=== PATIENT | female | born 1990 | race Caucasian/White ===

== ENCOUNTER → 2016-06-06 | Outpatient (CLI) | payer OTHER ==
--- NOTE | 2016-06-06 14:18 | US ---
EXAMINATION TYPE: US axilla extremity LT DATE OF EXAM: 06/06/2016 1:01 PM COMPARISON: NONE CLINICAL HISTORY: 25-year-old female R22.2 SWELLING MASS AND LUMP. Patient has a palpable lump within the left axilla that changes in size, color and degree of tenderness. Patient states scanned at [facility] and told lymph node, patient states can get very painful and reddened, wants surgically removed. TECHNIQUE: Multiple sonographic images at the site of patient's pain and palpable abnormality along t he left axilla. FINDINGS: Targeted scanning over the patient's area of concern, small brown skin discoloration over a pea-sized , mobile soft tissue mass characterized as an ovoid 7 mm hypoechoic structure showing no internal vas cularity and located just below the skin surface. IMPRESSION: Just below the skin surface at the site of patient's palpable and painful site in the left axilla is a 7 mm ovoid hypoechoic structure. The exact etiology is uncertain. This could be a sebaceous cyst or inclusion cyst. This does not show the typical morphology of a lymph node. If no intervention in the near future, consider reimaging if there is growth or increasing pain.
== END | disposition home or self-care (01) ==
LOC: RADUSWWP 12:25
PROVIDERS: ATTEND Family Medicine
DX: R22.2 Localized swelling, mass and lump, trunk (principal)

== ENCOUNTER → 2016-06-08 | Outpatient (CLI) | payer OTHER ==
--- NOTE | 2016-06-08 12:27 | MM ---
Reason for exam: clinical finding. History: Family history of breast cancer in maternal aunt at age 50. Indicated problem(s): lump or thickening in both breasts. Physical Findings: Nurse Summary: 1 x 1cm nodule in the right breast at 1 o'clock, 3 o'clock and 5 o'clock (nurse ts). MG Diagnostic Mammo w CAD NOE Bilateral CC and MLO view(s) were taken. The breast tissue is heterogeneously dense. This may lower the sensitivity of mammography. There is no discrete abnormality. These results were verbally communicated with the patient and result sheet given to the patient on 06/08/16. ASSESSMENT: Incomplete: need additional imaging evaluation, BI-RAD 0 RECOMMENDATION: Ultrasound of the right breast. (palpable abnormality)
--- NOTE | 2016-06-13 08:12 | USB ---
Reason for exam: additional evaluation requested from abnormal screening. History: Family history of breast cancer in maternal aunt at age 50. US Breast Limited RT Prior study comparison: November 25, 2015, ultrasound, performed at [facility]. Right breast ultrasound demonstrates a 1.8 x 1.1 x 0.7cm hyperechoic at 3 o'clock and a 1.3 x 1.0 x 0.6cm oval, hyperechoic lesion at 2 o'clock, probable lipoma. These results were verbally communicated with the patient and result sheet given to the patient on 06/08/16. ASSESSMENT: Probably benign, BI-RAD 3 RECOMMENDATION: Ultrasound of the right breast in 6 months.
== END | disposition home or self-care (01) ==
LOC: RADMAMWWP 10:08
PROVIDERS: ATTEND Family Medicine
DX: N63 Unspecified lump in breast (principal)
CPT/HCPCS: 76642; G0204

== ENCOUNTER 2016-07-05 11:40 | Day surgery (SDC) | payer OTHER ==
[2016-06-30 15:26] VITALS: BMI 32.5
[~2016-07-05 11:40] MED LIST: DEXAMETHASONE SOD PHOSPHATE 10 MG/ML 1 ML VIAL IV ONE; HYDROmorphone 1 MG/ML 1 ML SYRINGE IVP PRN; LACTATED RINGERS 1,000 ML IV SCH; LIDOCAINE 1% 20 ML VIAL (10MG/ML) FOR IV START INTRADERMA PRN; MIDAZOLAM 2 MG/2 ML VIAL IV PRN; ONDANSETRON 4 MG/2 ML VIAL IVP ONE; Pre Op ABX Message 1 EACH MISC MISCELLANE ONE; SCOPOLAMINE 1.5MG/72HR PATCH TRANSDERM ONE
[2016-07-05] MEDS ORDERED: LACTATED RINGERS 1,000 ML IV ONE ×2 (12:14→14:55)
[2016-07-05] MEDS ORDERED: HEPARIN SODIUM,PORCINE 5,000 UNIT/ML 1 ML VIAL SQ ONE (13:35)
[2016-07-05] MEDS ORDERED: LIDOCAINE (PF) 10 MG/ML 2 ML VIAL SQ ONE (13:56)
[2016-07-05] MEDS ORDERED: LIDOCAINE 1% INJ 10MG/ML (20 ML MDV) ONE (14:04)
[2016-07-05] MEDS ORDERED: PROPOFOL 10 MG/ML 20 ML VIAL IV ONE (14:04)
[2016-07-05] MEDS ORDERED: fentaNYL (PF) 50 MCG/ML 2 ML AMP ONE (14:04)
[2016-07-05] MEDS ORDERED: MIDAZOLAM 2 MG/2 ML VIAL ONE (14:04)
[2016-07-05] MEDS ORDERED: LIDOCAINE 1% INJ 10MG/ML (20 ML MDV) SQ ONE ×2 (14:25)
--- NOTE | 2016-07-05 15:00 | P.OP ---
Date of Procedure: 07/05/16 Preoperative Diagnosis: Breast nodule, left axillary cyst Postoperative Diagnosis: Same Procedure(s) Performed: Right breast biopsy, left axillary cyst removal Anesthesia: MAC Surgeon: Gem Dobson Estimated Blood Loss (ml): 10 IV fluids (ml): 600 Pathology: other (Right breast tissue, left axillary cyst) Condition: stable Disposition: PACU Indications for Procedure: Persistent nodularity in the right breast which is palpable FNA was benign. This bothers the patient she wishes it to be removed, left axillary cystic area Operative Findings: Right breast nodularity probable lipoma, left axillary cyst Description of Procedure: Patient was taken to the operating room and following sedation the right breast and left axilla were prepped and draped in a sterile fashion. The right breast was approached first. The circumflex coronary area incision was made after 1% lidocaine had been injected. The area of palpable abnormality was approached through this incision and it was excised. This appeared to be consistent with a lipoma. Following this after assured that hemostasis was attained the incision was closed using 4-0 Monocryl. Dermabond was applied. The left axilla was then approached the lungs were changed and the percent lidocaine was used to anesthetize the area of concern. Excision was performed this appeared to be superficial cystic structure. Skin was closed using a nylon suture after assured hemostasis was attained using electrocautery device. Patient tolerated procedure in stable condition. All instrument and sponge counts were correct at the end of the case.
--- NOTE | 2016-07-05 15:01 | P.DS ---
Providers Attending physician: Gem Dobson Primary care physician: Dallas Muhammad Plan - Discharge Summary Discharge Medication List ALPRAZolam [Xanax] 0.25 mg PO BID PRN 06/30/16 [History] Acetaminophen Tab [Tylenol Tab] 650 mg PO Q4H 06/30/16 [History] Cyclobenzaprine [Flexeril] 10 mg PO TID PRN 06/30/16 [History] HYDROcodone/APAP 5-325MG [[place] 5-325] 1 tab PO TID 06/30/16 [History] Ibuprofen [Motrin] 800 mg PO Q6HR PRN 06/30/16 [History] Follow up Appointment(s)/Referral(s): Gem Dobson MD [STAFF PHYSICIAN] - 1 Week Activity/Diet/Wound Care/Special Instructions: Do not drive today Rib block at all times Patient may shower after 48 hours Discharge Disposition: HOME SELF-CARE
[2016-07-05] MEDS ORDERED: MIDAZOLAM 2 MG/2 ML VIAL IVP ONE (15:16)
[2016-07-05 15:31] VITALS: TEMP 97.8
[2016-07-05 15:51] VITALS: RESP 18
[2016-07-05] MEDS ORDERED: HYDROcodone/APAP 5-325MG 1 EACH TAB PO ONE (15:58)
[2016-07-05 16:07] VITALS: BP 94/66; PULSE 71
== END 2016-07-05 16:35 | disposition home or self-care (01) ==
LOC: OR 11:40
PROVIDERS: ATTEND Surgery
DX: N64.1 Fat necrosis of breast (principal); L72.8 Other follicular cysts of the skin and subcutaneous tissue; N63 Unspecified lump in breast; Z88.2 Allergy status to sulfonamides; F17.200 Nicotine dependence, unspecified, uncomplicated; F41.9 Anxiety disorder, unspecified; Z79.899 Other long term (current) drug therapy
CPT/HCPCS: 19301; 11401; 88304; 88307; J2250; J1100; J2405; J2001; J3010; J2704

== ENCOUNTER 2016-08-12 23:24 | Emergency (ER) | payer OTHER ==
[2016-08-12 23:32] VITALS: RESP 18; TEMP 98.3
--- NOTE | 2016-08-13 02:02 | ED ---
Skin/Abscess/FB HPI - General Chief complaint: Skin/Abscess/Foreign Body Stated complaint: Rash/Leg Time Seen by Provider: 08/13/16 00:30 Source: patient, RN notes reviewed Mode of arrival: ambulatory Limitations: no limitations - History of Present Illness Initial comments: 25 yo female presents to the emergency Department chief complaint of abscess to the left inner thigh. Patient has had this for the past day or so. Patient denies any change in the area but does admit to a history of abscess. Patient has not any redness or swelling. Patient states she hasn't had any fever or chills. Patient states she does have pain to touch. Patient states she has a history of abscesses and thought that this looked familiar so she thought that she should be evaluated.Patient denies any recent fever, chills, shortness of breath, chest pain, back pain, abdominal pain, nausea vomiting, numbness or tingling, dysuria or hematuria, constipation or diarrhea, headaches or visual changes, or any other current symptoms. - Related Data Home Medications Medication Instructions Recorded Confirmed ALPRAZolam [Xanax] 0.25 mg PO BID PRN 06/30/16 06/30/16 Acetaminophen Tab [Tylenol Tab] 650 mg PO Q4H 06/30/16 06/30/16 Cyclobenzaprine [Flexeril] 10 mg PO TID PRN 06/30/16 06/30/16 HYDROcodone/APAP 5-325MG [[place] 1 tab PO TID 06/30/16 06/30/16 5-325] Ibuprofen [Motrin] 800 mg PO Q6HR PRN 06/30/16 06/30/16 Previous Rx's Medication Instructions Recorded Amoxic-Pot Clav 875-125Mg 1 tab PO Q12HR 7 Days 07/22/16 [Augmentin 875-125] Clindamycin [Cleocin] 450 mg PO Q8HR #90 capsule 08/13/16 Allergies Allergy/AdvReac Type Severity Reaction Status Date / Time Sulfa (Sulfonamide Allergy Rash/Hives Verified 08/12/16 23:32 Antibiotics) Review of Systems ROS Statement: Those systems with pertinent positive or pertinent negative responses have been documented in the HPI. ROS Other: All systems not noted in ROS Statement are negative. Past Medical History Past Medical History: Asthma, Osteoarthritis (OA) History of Any Multi-Drug Resistant Organisms: None Reported Past Surgical History: Cholecystectomy, Hernia Repair, Hysterectomy, Tonsillectomy, Tubal Ligation Additional Past Surgical History / Comment(s): BILATERAL TEAR DUCT,UTERINE ABLATION, right breast lumpectomy Past Anesthesia/Blood Transfusion Reactions: No Reported Reaction Past Psychological History: Anxiety Smoking Status: Current every day smoker Past Alcohol Use History: None Reported Additional Past Alcohol Use History / Comment(s): STARTED SMOKING AT AGE 14 SMOKES 1/2PPD Past Drug Use History: None Reported - Past Family History Mother Family Medical History: Cancer Additional Family Medical History / Comment(s): SKIN CANCER General Exam - General Exam Comments Initial Comments: General: The patient is awake and alert, in no distress, and does not appear acutely ill. Neck: The neck is supple, there is no tenderness. Cardiovascular: There is a regular rate and rhythm. No murmur, rub or gallop is appreciated. Respiratory: Lungs are clear to auscultation, respirations are non-labored, breath sounds are equal. No wheezes, stridor, rales, or rhonchi. Musculoskeletal: The patient With 2+ pulses. Left lower extremity. Full range of motion of the left hip and left knee. Patient does appear to have an abscess to the left internal side. There is no associated induration or swelling to the area. Neurological: CN II-XII intact, There are no obvious motor or sensory deficits. Coordination appears grossly intact. Speech is normal. Skin: Skin is warm and dry and no rashes or lesions are noted. Psychiatric: Normal mood and affect. Limitations: no limitations Course Vital Signs 08/12/16 23:29 Temperature 98.3 F Pulse Rate 83 Respiratory 18 Rate Blood Pressure 121/80 O2 Sat by Pulse 100 Oximetry Procedures - Procedures Initial comment: Procedure: Incision and drainage The skin overlying the abscess was prepped with Betadine, and anesthetized with 1% lidocaine without epinephrine. A #11 scalpel was then used to incise the abscess. Some purulent material was then extracted from the lesion. Gauze dressing placed on top, The patient tolerated the procedure well. Medical Decision Making - Medical Decision Making 25-year-old female presents to the emergency department with a chief complaint of left leg abscess. This pain patient underwent I&D. We did discuss care we did discuss follow-up with to discuss return parameters. We discussed all the patient's questions. He stated he understood and they are in agreement with plan. They will be discharged home. Disposition Clinical Impression: Abscess of left thigh Disposition: HOME SELF-CARE Condition: Stable Instructions: Abscess Incision and Drainage (ED) Additional Instructions: Please use medication as discussed. Please follow up with family doctor if symptoms have not improved over the next two days. Please return to the emergency room if your symptoms increase or worsen or for any other concerns. Prescriptions: Clindamycin [Cleocin] 450 mg PO Q8HR #90 capsule Referrals: Dallas Muhammad MD [Primary Care Provider] - 1-2 days Time of Disposition: 02:01
[2016-08-13 02:10] VITALS: BP 116/71; PULSE 82
== END 2016-08-13 02:10 | disposition home or self-care (01) ==
LOC: EC 23:24
DX: L02.416 Cutaneous abscess of left lower limb (principal); F17.200 Nicotine dependence, unspecified, uncomplicated; Z79.891 Long term (current) use of opiate analgesic; Z88.2 Allergy status to sulfonamides
CPT/HCPCS: 10060; 99282

== ENCOUNTER → 2016-10-14 | Outpatient (CLI) | payer OTHER ==
--- NOTE | 2016-10-19 09:37 | USB ---
Reason for exam: follow-up at short interval from prior study. History: Family history of breast cancer in maternal aunt at age 50. Physical Findings: Nurse Summary: had excisional 3 months ago right breast, tender (nurse kp). US Breast RT Right breast ultrasound includes all four quadrants, the retroareolar region and axilla. Finding demonstrates a 1.7cm area of surgical post changes at 3 o'clock. These results were verbally communicated with the patient and result sheet given to the patient on 10/14/16. ASSESSMENT: Benign, BI-RAD 2 RECOMMENDATION: Routine screening mammogram of both breasts at age 39. (per ACS guidelines) Manage patient on a clinical basis.
== END | disposition home or self-care (01) ==
LOC: RADUSWWP 15:38
PROVIDERS: ATTEND Family Medicine
DX: N63 Unspecified lump in breast (principal)

== ENCOUNTER 2016-11-02 15:39 | Emergency (ER) | payer OTHER ==
[2016-11-02 16:17] VITALS: BP 119/76; PULSE 106; RESP 18; TEMP 98.1
[2016-11-02] MEDS ORDERED: diphenhydrAMINE 50 MG CAP PO STA (16:30)
[2016-11-02] MEDS ORDERED: methylPREDNISolone SOD SUCCI 125 MG/2 ML VIAL IM ONE (16:30)
[2016-11-02] MEDS ORDERED: FAMOTIDINE 20 MG TAB PO STA (16:30)
--- NOTE | 2016-11-02 16:38 | ED ---
Skin/Abscess/FB HPI - General Chief complaint: Skin/Abscess/Foreign Body Stated complaint: Bee Sting Time Seen by Provider: 11/02/16 16:18 Source: patient, RN notes reviewed Mode of arrival: ambulatory Limitations: no limitations - History of Present Illness Initial comments: Patient is a 25-year-old female presents to the emergency room for evaluation of bee sting. Patient states she was stung by a bee on her right foot on Monday. Patient states she had some mild swelling and itching at the sting sight since. Patient states she noticed some swelling at the sting site. Patient denies fevers, chills, nausea vomiting or warmth at the area. Patient states she has been taking Benadryl with no relief of symptoms. - Related Data Home Medications Medication Instructions Recorded Confirmed ALPRAZolam [Xanax] 0.25 mg PO BID PRN 06/30/16 06/30/16 Acetaminophen Tab [Tylenol Tab] 650 mg PO Q4H 06/30/16 06/30/16 Cyclobenzaprine [Flexeril] 10 mg PO TID PRN 06/30/16 06/30/16 HYDROcodone/APAP 5-325MG [[place] 1 tab PO TID 06/30/16 06/30/16 5-325] Ibuprofen [Motrin] 800 mg PO Q6HR PRN 06/30/16 06/30/16 Previous Rx's Medication Instructions Recorded Amoxic-Pot Clav 875-125Mg 1 tab PO Q12HR 7 Days 07/22/16 [Augmentin 875-125] Clindamycin [Cleocin] 450 mg PO Q8HR #90 capsule 08/13/16 Pramox-Calamine 1-8% Lotion 1 applic TOPICAL TID 7 Days 11/02/16 [Caladryl] Allergies Allergy/AdvReac Type Severity Reaction Status Date / Time Sulfa (Sulfonamide Allergy Rash/Hives Verified 11/02/16 16:17 Antibiotics) Review of Systems ROS Statement: Those systems with pertinent positive or pertinent negative responses have been documented in the HPI. ROS Other: All systems not noted in ROS Statement are negative. Past Medical History Past Medical History: Asthma, Osteoarthritis (OA) History of Any Multi-Drug Resistant Organisms: None Reported Past Surgical History: Cholecystectomy, Hernia Repair, Hysterectomy, Tonsillectomy, Tubal Ligation Additional Past Surgical History / Comment(s): BILATERAL TEAR DUCT,UTERINE ABLATION, right breast lumpectomy Past Anesthesia/Blood Transfusion Reactions: No Reported Reaction Past Psychological History: Anxiety Smoking Status: Current every day smoker Past Alcohol Use History: None Reported Past Drug Use History: None Reported - Past Family History Mother Family Medical History: Cancer Additional Family Medical History / Comment(s): SKIN CANCER General Exam - General Exam Comments Initial Comments: Sitting on exam bed in no acute distress. Limitations: no limitations General appearance: alert, in no apparent distress Head exam: Present: atraumatic, normocephalic, normal inspection Eye exam: Present: normal appearance ENT exam: Present: normal exam Neck exam: Present: normal inspection Respiratory exam: Present: normal lung sounds bilaterally. Absent: respiratory distress Cardiovascular Exam: Present: regular rate, normal rhythm, normal heart sounds Right Ankle exam: Present: normal inspection, full ROM Foot/Toe exam: Present: tenderness (over the insect bite site), swelling ( slight edema on the mid-first metacarpal bone on the dorsal side from insect bite/sting). Absent: normal inspection Neurovascular tendon exam: Present: no vascular compromise. Absent: pulse deficit (2+ dorsal pedal and posterior tibial pulses), abnormal cap refill ( capillary refill less than 2 seconds) Back exam: Present: normal inspection Neurological exam: Present: alert, oriented X3, CN II-XII intact Psychiatric exam: Present: normal affect, normal mood Skin exam: Present: warm, dry. Absent: rash Course Vital Signs 11/02/16 16:14 Temperature 98.1 F Pulse Rate 106 H Respiratory 18 Rate Blood Pressure 119/76 O2 Sat by Pulse 97 Oximetry Medical Decision Making - Medical Decision Making Patient is a 25-year-old female presents to the emergency room for evaluation of right foot insect bite/sting. Patient does have some swelling around the site. No signs of cellulitis or infection noted no drainage noted patient has no fevers or chills. Patient denies any shortness of breath or chest pain. Patient given Solu-Medrol, Pepcid and another dose of Benadryl. Patient offered antibiotics. Patient states that she does not want antibiotics at this time and will follow-up with her primary care provider if symptoms worsen. Patient be sent home with Caladryl cream for comfort. Patient states she understands everything that was discussed with her. Return parameters discussed. Disposition Clinical Impression: Insect bite of right foot with local reaction Disposition: HOME SELF-CARE Condition: Good Instructions: Insect Bite or Sting (ED) Additional Instructions: Apply lotion as needed. Continue taking Benadryl every 4-6 hours. Please follow up with primary care provider in 1-2 days for reevaluation. If any new symptom arises or symptoms worsen, return to ER as soon as possible. Prescriptions: Pramox-Calamine 1-8% Lotion [Caladryl] 1 applic TOPICAL TID 7 Days Referrals: Dallas Muhammad MD [Primary Care Provider] - 1-2 days Time of Disposition: 16:33
== END 2016-11-02 16:52 | disposition home or self-care (01) ==
LOC: EC 15:39
DX: T63.441A Toxic effect of venom of bees, accidental (unintentional), initial encounter (principal); M19.90 Unspecified osteoarthritis, unspecified site; F17.200 Nicotine dependence, unspecified, uncomplicated; Z88.2 Allergy status to sulfonamides; Z79.891 Long term (current) use of opiate analgesic; Z79.899 Other long term (current) drug therapy
CPT/HCPCS: 99282; 96372; J2930

== ENCOUNTER 2017-01-20 19:49 | Emergency (ER) | payer OTHER ==
--- NOTE | 2017-01-20 20:16 | ED ---
Lower Extremity Injury HPI - General Stated Complaint: Fell down stairs/arm pain Time Seen by Provider: 01/20/17 20:06 Source: patient, RN notes reviewed Mode of arrival: ambulatory Limitations: no limitations - History of Present Illness Initial Comments: 26-year-old female presents emergency Department with chief complaint of fall. Patient has a left forearm injury. Patient states that she slipped on some stairs because she was wearing socks. Patient denies head injury no LOC. Patient states she feels sore but only complains primarily of left forearm pain she states her some bruising noted. - Related Data Home Medications Medication Instructions Recorded Confirmed ALPRAZolam [Xanax] 0.25 mg PO BID PRN 06/30/16 11/02/16 Acetaminophen Tab [Tylenol Tab] 650 mg PO Q4H 06/30/16 11/02/16 Cyclobenzaprine [Flexeril] 10 mg PO TID PRN 06/30/16 11/02/16 HYDROcodone/APAP 5-325MG [[place] 1 tab PO TID PRN 06/30/16 11/02/16 5-325] Ibuprofen [Motrin] 800 mg PO Q8H PRN 06/30/16 11/02/16 Loratadine 10 mg PO DAILY 11/02/16 11/02/16 Montelukast [Singulair] 10 mg PO HS 11/02/16 11/02/16 Previous Rx's Medication Instructions Recorded Pramox-Calamine 1-8% Lotion 1 applic TOPICAL TID 7 Days 11/02/16 [Caladryl] Allergies Allergy/AdvReac Type Severity Reaction Status Date / Time Sulfa (Sulfonamide Allergy Rash/Hives Verified 11/02/16 16:40 Antibiotics) Review of Systems ROS Statement: Those systems with pertinent positive or pertinent negative responses have been documented in the HPI. ROS Other: All systems not noted in ROS Statement are negative. Past Medical History Past Medical History: Asthma, Osteoarthritis (OA) History of Any Multi-Drug Resistant Organisms: None Reported Past Surgical History: Cholecystectomy, Hernia Repair, Hysterectomy, Tonsillectomy, Tubal Ligation Additional Past Surgical History / Comment(s): BILATERAL TEAR DUCT,UTERINE ABLATION, right breast lumpectomy Past Anesthesia/Blood Transfusion Reactions: No Reported Reaction Past Psychological History: Anxiety Smoking Status: Current every day smoker Past Alcohol Use History: None Reported Past Drug Use History: None Reported - Past Family History Mother Family Medical History: Cancer Additional Family Medical History / Comment(s): SKIN CANCER General Exam Limitations: no limitations General appearance: alert, in no apparent distress Head exam: Present: atraumatic, normocephalic, normal inspection Neck exam: Present: normal inspection, full ROM. Absent: tenderness, meningismus, lymphadenopathy Respiratory exam: Present: normal lung sounds bilaterally. Absent: respiratory distress, wheezes, rales, rhonchi, stridor Cardiovascular Exam: Present: regular rate, normal rhythm, normal heart sounds. Absent: systolic murmur, diastolic murmur, rubs, gallop, clicks Extremities exam: Present: other (Left forearm there is moderate swelling, ecchymosis noted, there is palpation of the mid forearm, no tenderness of the wrist full range of motion left elbow and wrist neurovascular intact) Back exam: Present: normal inspection, full ROM. Absent: tenderness Neurological exam: Present: alert, oriented X3, CN II-XII intact Skin exam: Present: warm, dry, intact, normal color. Absent: rash Course Vital Signs 01/20/17 20:10 Temperature 98.3 F Pulse Rate 80 Respiratory 18 Rate Blood Pressure 145/80 O2 Sat by Pulse 99 Oximetry Medical Decision Making - Medical Decision Making 26-year-old female presented to the emergency Department with chief complaint of fall. X-rays does not show any acute fractures. Patient has a left forearm hematoma/contusion. Patient be discharged return parameters were discussed. Disposition Clinical Impression: Fall, Contusion of left forearm Disposition: HOME SELF-CARE Condition: Stable Instructions: Contusion in Adults (ED) Additional Instructions: Please return to the Emergency Department if symptoms worsen or any other concerns. Referrals: Dallas Muhammad MD [Primary Care Provider] - 1-2 days Time of Disposition: 20:44
[2017-01-20 20:19] VITALS: BP 145/80; PULSE 80; RESP 18; TEMP 98.3
--- NOTE | 2017-01-20 20:40 | XR ---
EXAMINATION TYPE: XR forearm LT DATE OF EXAM: 01/20/2017 COMPARISON: NONE HISTORY: Pain TECHNIQUE: 2 views FINDINGS: I see no fracture nor dislocation. Radius and ulna appear intact. Soft tissues appear alondra l. IMPRESSION: Normal left forearm
== END 2017-01-20 20:50 | disposition home or self-care (01) ==
LOC: EC 19:49
DX: S50.12XA Contusion of left forearm, initial encounter (principal); J45.909 Unspecified asthma, uncomplicated; M19.90 Unspecified osteoarthritis, unspecified site; F17.200 Nicotine dependence, unspecified, uncomplicated; Z79.899 Other long term (current) drug therapy; W10.9XXA Fall (on) (from) unspecified stairs and steps, initial encounter
CPT/HCPCS: 99283

== ENCOUNTER 2017-06-06 17:10 | Emergency (ER) | payer OTHER ==
[2017-06-06 17:20] VITALS: RESP 16
[2017-06-06 17:40] LABS: Basophils # (A) 0.1 k/uL (0-0.2); Basophils % (A) 1 %; Eosinophils # (A) 0.4 k/uL (0-0.7); Eosinophils % (A) 3 %; HCT 43.1 % (34.0-46.0); Lymphocytes # (A) 3.6 k/uL (1.0-4.8); Lymphocytes % (A) 32 %; MCH 29.6 pg (25.0-35.0); MCHC 34.9 g/dL (31.0-37.0); MCV 84.9 fL (80.0-100.0); Mean Platelet Volume 7.3; Monocytes # (A) 0.5 k/uL (0-1.0); Monocytes % (A) 5 %; Neutrophils # (A) 6.5 k/uL (1.3-7.7); Neutrophils % (A) 58 %; Platelet Count 308 k/uL (150-450); RBC 5.08 m/uL (3.80-5.40); RDW 12.1 % (11.5-15.5); WBC 11.2 k/uL (3.8-10.6)
[2017-06-06 17:59] LABS: ALT 64 U/L (9-52); AST 36 U/L (14-36); Albumin 4.1 g/dL (3.5-5.0); Alkaline Phosphatase 104 U/L (38-126); Amylase 91 U/L (30-110); Anion Gap 11 mmol/L; Blood Urea Nitrogen 10 mg/dL (7-17); Calcium 9.4 mg/dL (8.4-10.2); Carbon Dioxide 23 mmol/L (22-30); Chloride 107 mmol/L (98-107); Glucose 98 mg/dL (74-99); Lipase 82 U/L (23-300); Potassium 4.1 mmol/L (3.5-5.1); Sodium 141 mmol/L (137-145); Total Bilirubin 0.3 mg/dL (0.2-1.3); Total Protein 6.6 g/dL (6.3-8.2)
[2017-06-06] MEDS ORDERED: SODIUM CHLORIDE 0.9% 1,000 ML IV ONE (18:06)
[2017-06-06] MEDS ORDERED: ONDANSETRON 4 MG/2 ML VIAL IVP STA (18:06)
[2017-06-06] MEDS ORDERED: KETOROLAC 30 MG/ML 1 ML VIAL IVP STA (18:06)
[2017-06-06] MEDS ORDERED: RX INFO: IV CONTRAST WAS GIVEN 1 EACH MISC MISCELLANE PRN (18:06)
--- NOTE | 2017-06-06 18:09 | ED ---
Abdominal Pain HPI - General Chief Complaint: Abdominal Pain Stated Complaint: Abd.pain Time Seen by Provider: 06/06/17 17:49 Source: patient, RN notes reviewed Mode of arrival: ambulatory Limitations: no limitations - History of Present Illness Initial Comments: This a 26-year-old female presents emergency Department chief complaint of abdominal discomfort. Patient states that she has been having abnormal bloating and cramping. Patient states that she once or primary care physician yesterday states that after she was at the office she developed nausea vomiting. states that she always has diarrhea after her cholecystectomy in 2014. Patient also had a hysterectomy. Patient states that she's had no fever no chills. Denies any sick contacts with similar symptoms. Patient states she's been scheduled for colonoscopy and EGD. Patient was given Bentyl and omeprazole yesterday. - Related Data Home Medications Medication Instructions Recorded Confirmed ALPRAZolam [Xanax] 0.25 mg PO BID PRN 06/30/16 06/06/17 Cyclobenzaprine [Flexeril] 10 mg PO TID PRN 06/30/16 06/06/17 Ibuprofen [Motrin] 800 mg PO Q8H PRN 06/30/16 06/06/17 Montelukast [Singulair] 10 mg PO HS 11/02/16 06/06/17 Albuterol Inhaler [Ventolin Hfa 1 - 2 puff INHALATION RT-Q6H PRN 06/06/17 Inhaler] Cetirizine HCl [Zyrtec] 10 mg PO DAILY PRN 06/06/17 06/06/17 Dicyclomine [Bentyl] 10 mg PO TID PRN 06/06/17 06/06/17 Fluticasone Nasal [place] [Flonase 1 - 2 spray EA NOSTRIL DAILY PRN 06/06/1706/06 Nasal [place]] Omeprazole 20 mg PO HS 06/06/17 06/06/17 diphenhydrAMINE HCL [Benadryl] 25 mg PO HS PRN 06/06/17 06/06/17 Previous Rx's Medication Instructions Recorded Ondansetron Odt [Zofran Odt] 4 mg PO Q8HR PRN #10 tab 06/06/17 Allergies Allergy/AdvReac Type Severity Reaction Status Date / Time Sulfa (Sulfonamide Allergy Rash/Hives Verified 06/06/17 18:27 Antibiotics) Review of Systems ROS Statement: Those systems with pertinent positive or pertinent negative responses have been documented in the HPI. ROS Other: All systems not noted in ROS Statement are negative. Past Medical History Past Medical History: Asthma, Osteoarthritis (OA) History of Any Multi-Drug Resistant Organisms: None Reported Past Surgical History: Cholecystectomy, Hernia Repair, Hysterectomy, Tonsillectomy, Tubal Ligation Additional Past Surgical History / Comment(s): BILATERAL TEAR DUCT,UTERINE ABLATION, right breast lumpectomy Past Anesthesia/Blood Transfusion Reactions: No Reported Reaction Past Psychological History: Anxiety Smoking Status: Current every day smoker Past Alcohol Use History: None Reported Past Drug Use History: None Reported - Past Family History Mother Family Medical History: Cancer Additional Family Medical History / Comment(s): SKIN CANCER General Exam Limitations: no limitations General appearance: alert, in no apparent distress Head exam: Present: atraumatic, normocephalic, normal inspection ENT exam: Present: normal exam, normal oropharynx, mucous membranes moist Neck exam: Present: normal inspection, full ROM. Absent: tenderness, meningismus, lymphadenopathy Respiratory exam: Present: normal lung sounds bilaterally. Absent: respiratory distress, wheezes, rales, rhonchi, stridor Cardiovascular Exam: Present: regular rate, normal rhythm, normal heart sounds. Absent: systolic murmur, diastolic murmur, rubs, gallop, clicks GI/Abdominal exam: Present: soft, tenderness (Mild suprapubic to right-sided abdominal tenderness), normal bowel sounds. Absent: distended, guarding, rebound, rigid Back exam: Absent: CVA tenderness (R), CVA tenderness (L) Skin exam: Present: warm, dry, intact, normal color. Absent: rash Course Vital Signs 06/06/17 17:17 Temperature 98.5 F Pulse Rate 96 Respiratory 16 Rate Blood Pressure 119/71 O2 Sat by Pulse 98 Oximetry Medical Decision Making - Medical Decision Making 26-year-old female presented for abdominal pain and bloating nausea vomiting. Patient's lab work showed mild elevation of white count though symptoms have been present for a long period of time. Patient had CT which shows evidence of enteritis. A be more consistent with recent nausea vomiting diarrhea Symptoms. Patient is scheduled to have a colonoscopy, EGD she will continue with that she'll try Bentyl as given by her primary care edition she'll be discharged with Zofran and return for any worsening symptoms. - Lab Data Result diagrams: 06/06/17 17:25 06/06/17 17:25 Lab Results 06/06/17 06/06/17 06/06/17 Range/Units 17:25 17:25 18:04 WBC 11.2 H (3.8-10.6) k/uL RBC 5.08 (3.80-5.40) m/uL Hgb 15.0 (11.4-16.0) gm/dL Hct 43.1 (34.0-46.0) % MCV 84.9 (80.0-100.0) fL MCH 29.6 (25.0-35.0) pg MCHC 34.9 (31.0-37.0) g/dL RDW 12.1 (11.5-15.5) % Plt Count 308 (150-450) k/uL Neutrophils % 58 % Lymphocytes % 32 % Monocytes % 5 % Eosinophils % 3 % Basophils % 1 % Neutrophils # 6.5 (1.3-7.7) k/uL Lymphocytes # 3.6 (1.0-4.8) k/uL Monocytes # 0.5 (0-1.0) k/uL Eosinophils # 0.4 (0-0.7) k/uL Basophils # 0.1 (0-0.2) k/uL Sodium 141 (137-145) mmol/L Potassium 4.1 (3.5-5.1) mmol/L Chloride 107 (98-107) mmol/L Carbon Dioxide 23 (22-30) mmol/L Anion Gap 11 mmol/L BUN 10 (7-17) mg/dL Creatinine 0.80 (0.52-1.04) mg/dL Est GFR (MDRD) Af Amer >60 (>60 ml/min/1.73 sqM) Est GFR (MDRD) Non-Af >60 (>60 ml/min/1.73 sqM) Glucose 98 (74-99) mg/dL Calcium 9.4 (8.4-10.2) mg/dL Total Bilirubin 0.3 (0.2-1.3) mg/dL AST 36 (14-36) U/L ALT 64 H (9-52) U/L Alkaline Phosphatase 104 (38-126) U/L Total Protein 6.6 (6.3-8.2) g/dL Albumin 4.1 (3.5-5.0) g/dL Amylase 91 (30-110) U/L Lipase 82 (23-300) U/L Urine Color Yellow Urine Appearance Cloudy H (Clear) Urine pH 6.5 (5.0-8.0) Ur Specific [place] 1.021 (1.001-1.035) Urine Protein Trace H (Negative) Urine Glucose (UA) Negative (Negative) Urine Ketones Trace H (Negative) Urine Blood Trace H (Negative) Urine Nitrite Negative (Negative) Urine Bilirubin Negative (Negative) Urine Urobilinogen 2.0 (<2.0) mg/dL Ur Leukocyte Esterase Trace H (Negative) Urine RBC 45 H (0-5) /hpf Urine WBC 3 (0-5) /hpf Ur Squamous Epith Cells 28 H (0-4) /hpf Urine Bacteria Occasional H (None) /hpf Urine Mucus Few H (None) /hpf Disposition Clinical Impression: Enteritis, Abdominal pain Disposition: HOME SELF-CARE Condition: Stable Instructions: Enteritis (ED) Additional Instructions: Please return to the Emergency Department if symptoms worsen or any other concerns. Prescriptions: Ondansetron Odt [Zofran Odt] 4 mg PO Q8HR PRN #10 tab PRN Reason: Nausea Referrals: Dallas Muhammad MD [Primary Care Provider] - 1-2 days Time of Disposition: 19:37
[2017-06-06 18:15] LABS: Appearance,Urine Cloudy (Clear); Bacteria,Urine Occasional /hpf; Bilirubin,Urine Negative (Negative); Blood,Urine Trace (Negative); Color,Urine Yellow; Glucose,Urine (UA) Negative (Negative); Ketones,Urine Trace (Negative); Leukocyte Esterase,Urine Trace (Negative); Mucus,Urine Few /hpf; Nitrite,Urine Negative (Negative); PH, Urine 6.5 (5.0-8.0); Protein,Urine Trace (Negative); RBC,Urine 45 /hpf (0-5); Specific Gravity,Urine 1.021 (1.001-1.035); Squamous Epithelial Cell,Urine 28 /hpf (0-4); WBC,Urine 3 /hpf (0-5)
--- NOTE | 2017-06-06 19:32 | CT ---
EXAMINATION TYPE: CT abdomen pelvis w con DATE OF EXAM: 06/06/2017 COMPARISON: NONE HISTORY: Right sided abdominal pain with vomiting. CT DLP: 1678 mGycm Automated exposure control for dose reduction was used. TECHNIQUE: Helical acquisition of images from the lung bases through the pelvis have been completed. CONTRAST: Performed without Oral Contrast and with IV Contrast, patient injected with 100 mL of Omnipaque 300. FINDINGS: LUNG BASES: No significant abnormality is appreciated. AORTA: No significant abnormality is appreciated. LIVER/GB: Patient is post cholecystectomy. Liver shows no mass. PANCREAS: No significant abnormality is seen. SPLEEN: No significant abnormality is seen. ADRENALS: No significant abnormality is seen. KIDNEYS: No significant abnormality is seen. REPRODUCTIVE ORGANS: Small left ovarian cyst is present measuring 2 cm, involuting follicle suspected within the right ovary, uterus is absent BOWEL: Small bowel shows multiple loops of wall thickening, luminal fluid. The appendix is normal.. FREE AIR: No Free Air visible. ASCITES: None visible. PELVIC ADENOPATHY: None visualized. RETROPERITONEAL ADENOPATHY: No Retroperitoneal Adenopathy visible. URINARY BLADDER: No significant abnormality is seen. OSSEOUS STRUCTURES: No significant abnormality is seen. IMPRESSION: CORRELATE FOR ENTERITIS. POSTOP CHANGES AND ADDITIONAL FINDINGS ABOVE.
[2017-06-06 20:05] VITALS: BP 118/70; PULSE 94; TEMP 98.3
== END 2017-06-06 20:05 | disposition home or self-care (01) ==
LOC: EC 17:10
DX: K52.9 Noninfective gastroenteritis and colitis, unspecified (principal); J45.909 Unspecified asthma, uncomplicated; F17.200 Nicotine dependence, unspecified, uncomplicated; Z90.49 Acquired absence of other specified parts of digestive tract; Z90.710 Acquired absence of both cervix and uterus; Z98.51 Tubal ligation status; Z79.899 Other long term (current) drug therapy; Z88.2 Allergy status to sulfonamides
CPT/HCPCS: 36415; 80053; 82150; 83690; 85025; 81001; 74177; 99284; 96374; 96375; 96361; J2405; J1885; Q9967

== ENCOUNTER 2017-06-23 08:26 | Day surgery (SDC) | payer OTHER ==
[2017-06-21 12:47] VITALS: BMI 40.2
[~2017-06-23 08:26] MED LIST changes: -DEXAMETHASONE SOD PHOSPHATE 10 MG/ML 1 ML VIAL IV ONE; -HYDROmorphone 1 MG/ML 1 ML SYRINGE IVP PRN; -LIDOCAINE 1% 20 ML VIAL (10MG/ML) FOR IV START INTRADERMA PRN; -MIDAZOLAM 2 MG/2 ML VIAL IV PRN; -ONDANSETRON 4 MG/2 ML VIAL IVP ONE; -Pre Op ABX Message 1 EACH MISC MISCELLANE ONE; -SCOPOLAMINE 1.5MG/72HR PATCH TRANSDERM ONE
[2017-06-23] MEDS ORDERED: LIDOCAINE 1% 20 ML VIAL (10MG/ML) FOR IV START INTRADERMA ONE (08:41)
[2017-06-23 08:48] VITALS: TEMP 98
[2017-06-23] MEDS ORDERED: fentaNYL (PF) 50 MCG/ML 2 ML AMP ONE (09:53)
[2017-06-23] MEDS ORDERED: MIDAZOLAM 2 MG/2 ML VIAL ONE (09:53)
[2017-06-23] MEDS ORDERED: PROPOFOL 10 MG/ML 20 ML VIAL IV ONE (09:53)
[2017-06-23] MEDS ORDERED: LIDOCAINE 1% INJ 10MG/ML (20 ML MDV) ONE (09:53)
--- NOTE | 2017-06-23 10:21 | P.PCN ---
Date of Procedure: 06/23/17 Procedure(s) Performed: Brief history: Patient is a pleasant 26-year-old white female, scheduled for an elective upper endoscopy as well as colonoscopy as a part of evaluation of GERD/lower abdominal pain and severe postprandial diarrhea for the last 6 months duration. She has followed centimeters from 5-10 a day which are loose to watery in consistency but denies any blood or mucus in the stool. Denies any recent weight loss. Procedure performed: Esophagogastroduodenoscopy with biopsy Colonoscopy with biopsy Preoperative diagnosis: GERD/chronic diarrhea Lower abdominal pain Anesthesia: MAC Procedure: After informed consent was obtained from the patient was brought into the endoscopy unit and IV sedation was administered by anesthesia under continuous monitoring. Initially upper endoscopy was done. The Olympus GF 160 video endoscope was inserted inserted into the mouth and esophagus intubated without any difficulty and was gradually advanced into the stomach and duodenum and carefully examined. The bulb and second part of the duodenum appeared normal. The scope was then withdrawn into the stomach adequately insufflated with air and upon careful examination the antrum had patchy areas of erythema and biopsies were done from this area. The body, cardia and fundus appeared normal. The scope was then withdrawn into the esophagus. The GE junction was located at 40 cm to the incisors. It appeared regular with no erythema erosions or ulcerations. Rest of the esophagus appeared normal. Patient tolerated the procedure well. At this time the patient continued to remain sedation. Initial digital rectal examination was normal. Olympus CF 160 video colonoscope was then inserted into the rectum and gradually advanced to the cecum without any difficulty. Careful examination was performed as the scope was gradually being withdrawn. The prep was excellent. Terminal ileum was intubated and 20 cm which raises appeared normal. Biopsies were done from this area. The cecum, ascending colon , transverse colon, descending colon, sigmoid colon and rectum appeared normal. Random biopsies were done from ascending and descending colon to rule out microscopic/collagenous colitis. Retroflexion was performed in the rectum and no lesions were noted. Patient tolerated the procedure well. Impression: 1. Upper endoscopy revealed mild antral gastritis, small hiatal hernia, LA grade B reflux esophagitis 2. Colonoscopy revealed normal colonoscopy as well his terminal ileum with no evidence of colitis or colorectal neoplasia Recommendations: Findings of this examination were discussed with the patient as well as her family. She was advised to follow with the biopsy results. In the meantime she can continue with Bentyl and daily basis.
[2017-06-23 10:33] VITALS: RESP 16
[2017-06-23 11:07] VITALS: BP 157/77; PULSE 84
[2017-06-23] MEDS ORDERED: ACETAMINOPHEN TAB 500 MG TAB PO ONE (11:10)
== END 2017-06-23 11:35 | disposition home or self-care (01) ==
LOC: ORWHC2ENDO 08:26
PROVIDERS: ATTEND Internal Medicine Gastroenterology
DX: K29.50 Unspecified chronic gastritis without bleeding (principal); K21.0 Gastro-esophageal reflux disease with esophagitis; K44.9 Diaphragmatic hernia without obstruction or gangrene; F39 Unspecified mood [affective] disorder; J44.9 Chronic obstructive pulmonary disease, unspecified; Z88.2 Allergy status to sulfonamides; Z79.899 Other long term (current) drug therapy; Z72.0 Tobacco use; Z79.1 Long term (current) use of non-steroidal anti-inflammatories (NSAID)
CPT/HCPCS: 81025; 88305; 45380; 43239; J2250; J2001; J3010; J2704

== ENCOUNTER → 2017-09-26 | Outpatient (CLI) | payer OTHER ==
--- NOTE | 2017-09-26 21:46 | CT ---
EXAMINATION TYPE: CT sinus wo con DATE OF EXAM: 09/26/2017 COMPARISON: NONE HISTORY: Chronic sinusitis, ROB. CT DLP: 581 mGycm. Automated Exposure Control for Dose Reduction was Utilized. TECHNIQUE: CT scan of the sinuses is performed without contrast, axial images are obtained, coronal r eformatted images are also reviewed. FINDINGS: There is large 2 cm mucous retention cyst in the right maxillary sinus. I see no bony destr uctive process. The orbital margins are intact. There is no evidence of retro-orbital mass. The globe s are symmetric. There is minimal mucosal thickening in the sphenoid and ethmoid sinuses. There is pa tency of the ostiomeatal complex bilaterally. Maxilla is intact. IMPRESSION: Mucous retention cyst in the right maxillary sinus. Mild ethmoid and sphenoid sinusitis.
== END ==
LOC: RADCTMAIN 19:22
PROVIDERS: ATTEND Otolaryngology
DX: J34.1 Cyst and mucocele of nose and nasal sinus (principal); J32.8 Other chronic sinusitis
CPT/HCPCS: 70486

== ENCOUNTER 2018-04-28 13:39 | Emergency (ER) | payer OTHER ==
[2018-04-28 13:58] VITALS: RESP 18
[2018-04-28] MEDS ORDERED: MORPHINE SULFATE 4 MG/ML SYRINGE IV STA (14:10)
[2018-04-28] MEDS ORDERED: SODIUM CHLORIDE 0.9% 1,000 ML IV STA ×2 (14:10)
[2018-04-28] MEDS ORDERED: ONDANSETRON 4 MG/2 ML VIAL IVP STA (14:10)
--- NOTE | 2018-04-28 14:12 | ED ---
General Adult HPI - General Chief complaint: Abdominal Pain Stated complaint: Abd pain Time Seen by Provider: 04/28/18 14:02 Source: patient, RN notes reviewed Mode of arrival: ambulatory Limitations: no limitations - History of Present Illness Initial comments: Patient 27-year-old female presenting to the emergency room today with a chief complaint of right-sided abdominal pain with symptoms of nausea vomiting, diarrhea. Patient does admit that symptoms started 2 days ago. Denies any signs of blood in the emesis or stool. Describes a sharp pain located in the right lower quadrant. Does admit some radiation to the back. Patient denies any other complaints currently. Patient denies any recent fever, chills, shortness of breath, chest pain, numbness or tingling, dysuria or hematuria, constipation, headaches or visual changes, or any other complaints. - Related Data Home Medications Medication Instructions Recorded Confirmed ALPRAZolam [Xanax] 0.25 mg PO BID PRN 06/30/16 06/23/17 Ibuprofen [Motrin] 800 mg PO Q8H PRN 06/30/16 06/23/17 Montelukast [Singulair] 10 mg PO HS 11/02/16 06/23/17 Dicyclomine [Bentyl] 10 mg PO TID PRN 06/06/17 06/23/17 Omeprazole 20 mg PO HS 06/06/17 06/23/17 Azithromycin [Zithromax] 250 mg PO DAILY 06/21/17 06/23/17 Previous Rx's Medication Instructions Recorded Dicyclomine [Bentyl] 20 mg PO QID #20 tablet 04/28/18 Ondansetron Odt [Zofran ODT] 4 mg PO Q8HR PRN #20 tab 04/28/18 Allergies Allergy/AdvReac Type Severity Reaction Status Date / Time Sulfa (Sulfonamide Allergy Rash/Hives Verified 06/21/17 12:42 Antibiotics) Review of Systems ROS Statement: Those systems with pertinent positive or pertinent negative responses have been documented in the HPI. ROS Other: All systems not noted in ROS Statement are negative. Past Medical History Past Medical History: Asthma, Fibromyalgia, Osteoarthritis (OA) Additional Past Medical History / Comment(s): CURRENTLY ON ANTIBIOTICS FOR SINUS INFECTION-DOCTOR AWARE History of Any Multi-Drug Resistant Organisms: None Reported Past Surgical History: Breast Surgery, Cholecystectomy, Hernia Repair, Hysterectomy, Tonsillectomy, Tubal Ligation, Uterine Ablation Additional Past Surgical History / Comment(s): BILATERAL TEAR DUCT,BMT, right breast lumpectomy Past Anesthesia/Blood Transfusion Reactions: No Reported Reaction Past Psychological History: Anxiety Smoking Status: Current every day smoker Past Alcohol Use History: Occasional Past Drug Use History: None Reported - Past Family History Mother Family Medical History: Cancer Additional Family Medical History / Comment(s): SKIN CANCER General Exam - General Exam Comments Initial Comments: General: The patient is awake and alert, in no distress, and does not appear acutely ill. Eye: There is normal conjunctiva bilaterally. No signs of icterus. Ears, nose, mouth and throat: There are moist mucous membranes and no oral lesions. Neck: The neck is supple, there is no tenderness or JVD. Cardiovascular: There is a regular rate and rhythm. No murmur, rub or gallop is appreciated. Respiratory: Lungs are clear to auscultation, respirations are non-labored, breath sounds are equal. No wheezes, stridor, rales, or rhonchi. Gastrointestinal: Abdomen soft on palpation. Patient does have tenderness right lower quadrant. No rebound, guarding or CVA tenderness. Musculoskeletal: Normal ROM, no tenderness. Neurological: A&O x 3. CN II-XII intact, There are no obvious motor or sensory deficits. Coordination appears grossly intact. Speech is normal. Skin: Skin is warm and dry and no rashes or lesions are noted. Psychiatric: Cooperative, appropriate mood & affect, normal judgment. Limitations: no limitations Course Vital Signs 04/28/18 13:54 Temperature 98.3 F Pulse Rate 113 H Respiratory 18 Rate Blood Pressure 126/95 O2 Sat by Pulse 97 Oximetry Medical Decision Making - Medical Decision Making Patient reexamined at this time shows no signs of distress is resting comfortably. Patient's labs reviewed and does show 15,000 white count. Patient did have a ultrasound obtained which did show good color Doppler flow to both left and right ovaries. Ultrasound was unable to visualize appendix. Patient still had persistent abdominal pain in the right lower quadrant. Was discussed about a CAT scan which CAT scan was obtained showing normal appendix and does show evidence for enteritis. At this time patient is currently comfortable will be treated for enteritis started on medications of Zofran, Bentyl for her symptoms of nausea, and diarrhea. She is advised following up with the next 2 days family physician return if symptoms increase or worsen. - Lab Data Result diagrams: 04/28/18 14:18 04/28/18 14:18 Lab Results 04/28/18 04/28/18 04/28/18 Range/Units 14:18 14:18 14:18 WBC 15.7 H (3.8-10.6) k/uL RBC 5.11 (3.80-5.40) m/uL Hgb 15.6 (11.4-16.0) gm/dL Hct 45.3 (34.0-46.0) % MCV 88.5 (80.0-100.0) fL MCH 30.6 (25.0-35.0) pg MCHC 34.5 (31.0-37.0) g/dL RDW 13.1 (11.5-15.5) % Plt Count 311 (150-450) k/uL Neutrophils % 71 % Lymphocytes % 20 % Monocytes % 4 % Eosinophils % 3 % Basophils % 0 % Neutrophils # 11.2 H (1.3-7.7) k/uL Lymphocytes # 3.2 (1.0-4.8) k/uL Monocytes # 0.7 (0-1.0) k/uL Eosinophils # 0.5 (0-0.7) k/uL Basophils # 0.1 (0-0.2) k/uL Sodium 138 (137-145) mmol/L Potassium 4.5 (3.5-5.1) mmol/L Chloride 103 (98-107) mmol/L Carbon Dioxide 27 (22-30) mmol/L Anion Gap 8 mmol/L BUN 14 (7-17) mg/dL Creatinine 0.69 (0.52-1.04) mg/dL Est GFR (CKD-EPI)AfAm >90 (>60 ml/min/1.73 sqM) Est GFR (CKD-EPI)NonAf >90 (>60 ml/min/1.73 sqM) Glucose 115 H (74-99) mg/dL Plasma Lactic Acid Erik (0.7-2.0) mmol/L Calcium 9.1 (8.4-10.2) mg/dL Total Bilirubin 0.7 (0.2-1.3) mg/dL AST 159 H (14-36) U/L ALT 259 H (9-52) U/L Alkaline Phosphatase 103 (38-126) U/L Total Protein 6.1 L (6.3-8.2) g/dL Albumin 4.0 (3.5-5.0) g/dL Lipase 113 (23-300) U/L Urine Color Urine Appearance (Clear) Urine pH (5.0-8.0) Ur Specific [place] (1.001-1.035) Urine Protein (Negative) Urine Glucose (UA) (Negative) Urine Ketones (Negative) Urine Blood (Negative) Urine Nitrite (Negative) Urine Bilirubin (Negative) Urine Urobilinogen (<2.0) mg/dL Ur Leukocyte Esterase (Negative) Urine RBC (0-5) /hpf Urine WBC (0-5) /hpf Ur Squamous Epith Cells (0-4) /hpf Urine Mucus (None) /hpf Urine HCG, Qual Not Detected (Not Detectd) 04/28/18 04/28/18 Range/Units 14:18 14:18 WBC (3.8-10.6) k/uL RBC (3.80-5.40) m/uL Hgb (11.4-16.0) gm/dL Hct (34.0-46.0) % MCV (80.0-100.0) fL MCH (25.0-35.0) pg MCHC (31.0-37.0) g/dL RDW (11.5-15.5) % Plt Count (150-450) k/uL Neutrophils % % Lymphocytes % % Monocytes % % Eosinophils % % Basophils % % Neutrophils # (1.3-7.7) k/uL Lymphocytes # (1.0-4.8) k/uL Monocytes # (0-1.0) k/uL Eosinophils # (0-0.7) k/uL Basophils # (0-0.2) k/uL Sodium (137-145) mmol/L Potassium (3.5-5.1) mmol/L Chloride (98-107) mmol/L Carbon Dioxide (22-30) mmol/L Anion Gap mmol/L BUN (7-17) mg/dL Creatinine (0.52-1.04) mg/dL Est GFR (CKD-EPI)AfAm (>60 ml/min/1.73 sqM) Est GFR (CKD-EPI)NonAf (>60 ml/min/1.73 sqM) Glucose (74-99) mg/dL Plasma Lactic Acid Erik 1.3 (0.7-2.0) mmol/L Calcium (8.4-10.2) mg/dL Total Bilirubin (0.2-1.3) mg/dL AST (14-36) U/L ALT (9-52) U/L Alkaline Phosphatase (38-126) U/L Total Protein (6.3-8.2) g/dL Albumin (3.5-5.0) g/dL Lipase (23-300) U/L Urine Color Yellow Urine Appearance Clear (Clear) Urine pH 7.0 (5.0-8.0) Ur Specific [place] 1.017 (1.001-1.035) Urine Protein Negative (Negative) Urine Glucose (UA) Negative (Negative) Urine Ketones Negative (Negative) Urine Blood Small H (Negative) Urine Nitrite Negative (Negative) Urine Bilirubin Negative (Negative) Urine Urobilinogen <2.0 (<2.0) mg/dL Ur Leukocyte Esterase Negative (Negative) Urine RBC 7 H (0-5) /hpf Urine WBC 1 (0-5) /hpf Ur Squamous Epith Cells 1 (0-4) /hpf Urine Mucus Rare H (None) /hpf Urine HCG, Qual (Not Detectd) Disposition Clinical Impression: Enteritis Disposition: HOME SELF-CARE Condition: Good Instructions: Enteritis (ED) Additional Instructions: Please use medication as discussed. Please follow-up with family doctor in the next 2 days of symptoms have not improved. Please return to emergency room if the symptoms increase or worsen or for any other concerns. Prescriptions: Dicyclomine [Bentyl] 20 mg PO QID #20 tablet Ondansetron Odt [Zofran ODT] 4 mg PO Q8HR PRN #20 tab PRN Reason: Nausea Is patient prescribed a controlled substance at d/c from ED?: No Referrals: Dallas Muhammad MD [Primary Care Provider] - 1-2 days Time of Disposition: 16:38
[2018-04-28 14:29] LABS: Basophils # (A) 0.1 k/uL (0-0.2); Basophils % (A) 0 %; Eosinophils # (A) 0.5 k/uL (0-0.7); Eosinophils % (A) 3 %; HCT 45.3 % (34.0-46.0); HGB 15.6 gm/dL (11.4-16.0); Lymphocytes # (A) 3.2 k/uL (1.0-4.8); Lymphocytes % (A) 20 %; MCH 30.6 pg (25.0-35.0); MCHC 34.5 g/dL (31.0-37.0); MCV 88.5 fL (80.0-100.0); Mean Platelet Volume 6.9; Monocytes # (A) 0.7 k/uL (0-1.0); Monocytes % (A) 4 %; Neutrophils # (A) 11.2 k/uL (1.3-7.7); Neutrophils % (A) 71 %; Platelet Count 311 k/uL (150-450); RBC 5.11 m/uL (3.80-5.40); RDW 13.1 % (11.5-15.5); WBC 15.7 k/uL (3.8-10.6)
[2018-04-28 14:31] LABS: Appearance,Urine Clear (Clear); Bilirubin,Urine Negative (Negative); Blood,Urine Small (Negative); Color,Urine Yellow; Glucose,Urine (UA) Negative (Negative); Ketones,Urine Negative (Negative); Leukocyte Esterase,Urine Negative (Negative); Mucus,Urine Rare /hpf; Nitrite,Urine Negative (Negative); Protein,Urine Negative (Negative); RBC,Urine 7 /hpf (0-5); Specific Gravity,Urine 1.017 (1.001-1.035); Squamous Epithelial Cell,Urine 1 /hpf (0-4); Urobilinogen,Urine <2.0 mg/dL (<2.0)
[2018-04-28 14:40] LABS: ALT 259 U/L (9-52); AST 159 U/L (14-36); Alkaline Phosphatase 103 U/L (38-126); Anion Gap 8 mmol/L; Blood Urea Nitrogen 14 mg/dL (7-17); Calcium 9.1 mg/dL (8.4-10.2); Carbon Dioxide 27 mmol/L (22-30); Chloride 103 mmol/L (98-107); Glucose 115 mg/dL (74-99); Lipase 113 U/L (23-300); Potassium 4.5 mmol/L (3.5-5.1); Sodium 138 mmol/L (137-145); Total Bilirubin 0.7 mg/dL (0.2-1.3); Total Protein 6.1 g/dL (6.3-8.2)
--- NOTE | 2018-04-28 15:44 | US ---
EXAMINATION TYPE: US abdomen APPY DATE OF EXAM: 04/28/2018 COMPARISON: NONE CLINICAL HISTORY: Pain. APPENDIX AP Diameter (normal < 6mm): not measured Measured outer wall to outer wall. Morbidly obese patient, appendix not visualized. IMPRESSION: Appendix not seen
--- NOTE | 2018-04-28 15:46 | US ---
EXAMINATION TYPE: US transvaginal DATE OF EXAM: 04/28/2018 COMPARISON: NONE CLINICAL HISTORY: pain. TECHNIQUE: Transvaginal (TV). : Date of LMP: 2014 patient had hysterectomy. EXAM MEASUREMENTS: Uterus: Surgically absent Endometrial Stripe: Surgically absent Right Ovary: 3.1 x 2.5 x 2.4cm Left Ovary: 2.5 x 1.7 x 1.7 cm 1. Uterus: Surgically absent 2. Endometrium: Surgically absent 3. Right Ovary: wnl 4. Left Ovary: This and associated hypoechoic focus measuring 14 mm, possible follicle. Spectral, color and waveform doppler imaging shows arterial and venous flow within the ovaries; the re is no evidence for ovarian torsion. 5. Bilateral Adnexa: wnl 6. Posterior cul-de-sac: wnl IMPRESSION: Status post hysterectomy
[2018-04-28] MEDS ORDERED: diphenhydrAMINE 50 MG/ML 1 ML VIAL IVP STA (15:50)
[2018-04-28] MEDS ORDERED: FAMOTIDINE 20 MG/2 ML VIAL IV STA (16:21)
--- NOTE | 2018-04-28 16:24 | CT ---
EXAMINATION TYPE: CT abdomen pelvis w con DATE OF EXAM: 04/28/2018 COMPARISON: CT abdomen pelvis 06/06/2017 HISTORY: Right sided abdominal pain with nausea, vomiting and diarrhea. CT DLP: 1294.7 mGycm Automated exposure control for dose reduction was used. TECHNIQUE: Helical acquisition of images from the lung bases through the pelvis have been completed. CONTRAST: Performed without Oral Contrast and with IV Contrast, patient injected with 100 mL of Isovue 300. FINDINGS: LUNG BASES: No significant abnormality is appreciated. AORTA: No significant abnormality is appreciated. LIVER/GB: No significant abnormality is appreciated within the liver, gallbladder is surgically absen t. PANCREAS: No significant abnormality is seen. SPLEEN: No significant abnormality is seen. ADRENALS: No significant abnormality is seen. KIDNEYS: No significant abnormality is seen. REPRODUCTIVE ORGANS: There is an oval area of increased attenuation with central low attenuation asso ciated with the right ovary compatible with involuting follicle. Left ovary shows associated follicle . Patient is post hysterectomy BOWEL: There are fluid-filled small bowel loops with wall thickening. No bowel obstruction. The appe ndix is normal. Scattered diverticular changes associated with the sigmoid colon, difficult to exclud e some colonic wall thickening. FREE AIR: No Free Air visible. ASCITES: None visible. PELVIC ADENOPATHY: None visualized. RETROPERITONEAL ADENOPATHY: No Retroperitoneal Adenopathy visible. URINARY BLADDER: No significant abnormality is seen. OSSEOUS STRUCTURES: No significant abnormality is seen. IMPRESSION: FINDINGS COMPATIBLE WITH PATIENT'S HISTORY, CORRELATE FOR ENTERITIS.
[2018-04-28 16:42] VITALS: BP 111/83; PULSE 83
[2018-04-28 16:55] VITALS: TEMP 97.8
[2018-04-28 17:38] LABS: Hepatitis A AB IgM Index 0.04; Hepatitis A Antibody IgM NEGATIVE
[2018-04-28 23:09] LABS: Hepatitis B Core IgM Non-Reactive (Non-Reactive)
== END 2018-04-28 16:56 | disposition home or self-care (01) ==
LOC: EC 13:39
DX: K52.9 Noninfective gastroenteritis and colitis, unspecified (principal); J45.909 Unspecified asthma, uncomplicated; M79.7 Fibromyalgia; J32.9 Chronic sinusitis, unspecified; F17.200 Nicotine dependence, unspecified, uncomplicated; Z88.2 Allergy status to sulfonamides; Z79.899 Other long term (current) drug therapy; Z90.49 Acquired absence of other specified parts of digestive tract
CPT/HCPCS: 36415; 80053; 80074; 83605; 83690; 85025; 81001; 81025; 93975; 76705; 76830; 74177; 99284; 96374; 96375 ×3; 96361 ×3; J2270; J1200; J2405; Q9967

== ENCOUNTER 2018-04-30 13:17 | Emergency (ER) | payer OTHER ==
[2018-04-30 13:24] VITALS: TEMP 98.1
[2018-04-30] MEDS ORDERED: SODIUM CHLORIDE 0.9% 1,000 ML IV STA (13:33)
[2018-04-30] MEDS ORDERED: MORPHINE SULFATE 4 MG/ML SYRINGE IVP STA ×2 (14:00→15:12)
[2018-04-30 14:06] LABS: Basophils # (A) 0.1 k/uL (0-0.2); Basophils % (A) 1 %; Eosinophils # (A) 0.4 k/uL (0-0.7); Eosinophils % (A) 3 %; HCT 46.2 % (34.0-46.0); HGB 14.7 gm/dL (11.4-16.0); Lymphocytes % (A) 21 %; MCH 28.5 pg (25.0-35.0); MCHC 31.9 g/dL (31.0-37.0); MCV 89.3 fL (80.0-100.0); Mean Platelet Volume 6.2; Monocytes # (A) 0.7 k/uL (0-1.0); Monocytes % (A) 5 %; Neutrophils % (A) 70 %; Platelet Count 304 k/uL (150-450); RBC 5.17 m/uL (3.80-5.40); RDW 13.2 % (11.5-15.5); WBC 14.2 k/uL (3.8-10.6)
[2018-04-30] MEDS ORDERED: ONDANSETRON 4 MG/2 ML VIAL IVP STA (14:07)
[2018-04-30] MEDS ORDERED: methylPREDNISolone SOD SUCCI 125 MG/2 ML VIAL IV STA (14:08)
[2018-04-30] MEDS ORDERED: FAMOTIDINE 20 MG/2 ML VIAL IV STA (14:08)
[2018-04-30] MEDS ORDERED: diphenhydrAMINE 50 MG/ML 1 ML VIAL IVP STA (14:08)
[2018-04-30 14:20] LABS: ALT 256 U/L (9-52); AST 54 U/L (14-36); Albumin 3.9 g/dL (3.5-5.0); Alkaline Phosphatase 124 U/L (38-126); Amylase 74 U/L (30-110); Anion Gap 7 mmol/L; Blood Urea Nitrogen 9 mg/dL (7-17); Calcium 9.6 mg/dL (8.4-10.2); Carbon Dioxide 28 mmol/L (22-30); Chloride 104 mmol/L (98-107); Glucose 96 mg/dL (74-99); Lipase 86 U/L (23-300); Potassium 4.1 mmol/L (3.5-5.1); Sodium 139 mmol/L (137-145); Total Bilirubin 0.8 mg/dL (0.2-1.3); Total Protein 6.6 g/dL (6.3-8.2)
[2018-04-30 15:42] LABS: Appearance,Urine Clear (Clear); Bilirubin,Urine Negative (Negative); Blood,Urine Negative (Negative); Color,Urine Light Yellow; Glucose,Urine (UA) Negative (Negative); Ketones,Urine Negative (Negative); Leukocyte Esterase,Urine Negative (Negative); Nitrite,Urine Negative (Negative); PH, Urine 6.5 (5.0-8.0); Protein,Urine Negative (Negative); Specific Gravity,Urine 1.005 (1.001-1.035); Urobilinogen,Urine <2.0 mg/dL (<2.0)
--- NOTE | 2018-04-30 16:05 | CT ---
EXAMINATION TYPE: CT abdomen pelvis w con DATE OF EXAM: 04/30/2018 COMPARISON: 04/28/2018 HISTORY: 27-year-old female worsening RLQ pain TECHNIQUE: Contiguous axial scanning of the abdomen and pelvis following administration of 100 ml Iso yoselin 300 IV contrast. Delayed images through the kidneys and coronal/sagittal reconstructions perform ed. CT DLP: 1398.5 mGycm Automated exposure control for dose reduction was used. FINDINGS: Heart normal size without pericardial effusion. Lung bases clear without pleural effusion. Liver upper limits of normal in size at 18.0 cm. No focal liver lesion. No biliary ductal dilatation. Portal venous system is patent. Cholecystectomy clips. Adrenal glands, kidneys, spleen, and pancreas appear within normal limits. No mesenteric or retroperitoneal lymphadenopathy seen. Normal appendix. Mild overall stool in the right hemicolon. No pericolonic inflammatory change. There is focal fat stranding along the right perimedian midabdominal wall just above the level of the umbilicus, refer to axial image 38 and sagittal image 71. This could represent a tiny abdominal wall defect with some minimal herniated inflamed omental fat. Bladder is nondistended. Uterus surgically absent. Both ovaries are visualized. No abnormal ovarian e nlargement seen. No abnormal fluid collection in the pelvis. No pelvic lymphadenopathy. Bones: Bulging disc at L5-S1. No osseous destructive process. IMPRESSION: 1. FOCAL FAT STRANDING ALONG THE RIGHT PARAMEDIAN MID ABDOMINAL WALL JUST ABOVE THE LEVEL OF THE UMBI LICUS (AXIAL IMAGE 38 AND SAGITTAL IMAGE 71). IF PAIN LOCALIZES TO THIS POINT, FINDINGS COULD REPRESE NT A TINY ABDOMINAL WALL DEFECT CONTAINING SOME HERNIATED AND INFLAMED OMENTAL FAT. 2. THE APPENDIX IS NORMAL. THERE IS OTHERWISE NO ACUTE INFLAMMATORY PROCESS IDENTIFIED IN THE ABDOMEN OR PELVIS TO EXPLAIN THE PATIENT'S SYMPTOMS.
--- NOTE | 2018-04-30 16:30 | ED ---
Abdominal Pain HPI - General Chief Complaint: Abdominal Pain Stated Complaint: R side pain Time Seen by Provider: 04/30/18 13:32 Source: patient Mode of arrival: ambulatory Limitations: no limitations - History of Present Illness Initial Comments: 27-year-old female presenting today for right-sided abdominal pain. Patient states that she was seen here on 04/28/2018 for evaluation of right lower quadrant pain. She states pelvic ultrasounds of performed revealing no acute process, she also states that she had an ultrasound of both the right lower quadrant as well as a CT of the abdomen revealing no signs concerning for acute appendicitis. Patient did have elevation of white blood cell, as well as her liver enzymes upon chart review. However no other concerning findings. She states that she continues to dry heave, but they diarrhea has almost subsided, she states she had a more formed BM this morning, pt called PCP this AM and she presented for evaluation given given persistence of symptoms. Patient denies a vaginal discharge or bleeding. Patient states she has had a history of hysterectomy. Patient states she has stopped vomiting, she states she occasionally has dry vomiting now. Patient denies any urgency, frequency, dysuria. Patient denies any chest pain, dyspnea, dyspnea on exertion. Patient denies any cough, fever, chills, jaundice, dizziness, melena . - Related Data Home Medications Medication Instructions Recorded Confirmed ALPRAZolam [Xanax] 0.25 mg PO BID PRN 06/30/16 04/30/18 Ibuprofen [Motrin] 800 mg PO Q8H PRN 06/30/16 04/30/18 Montelukast [Singulair] 10 mg PO HS 11/02/16 04/30/18 Omeprazole 20 mg PO HS 06/06/17 04/30/18 Cetirizine HCl [Zyrtec] 10 mg PO HS 04/30/18 04/30/18 Cyclobenzaprine [Flexeril] 10 mg PO HS 04/30/18 04/30/18 HYDROcodone/APAP 5-325MG [[place] 1 tab PO TID PRN 04/30/18 04/30/18 5-325] Pregabalin [Lyrica] 50 mg PO HS 04/30/18 04/30/18 Ranitidine HCl [Zantac] 150 mg PO BID 04/30/18 04/30/18 Previous Rx's Medication Instructions Recorded Dicyclomine [Bentyl] 20 mg PO QID #20 tablet 04/28/18 Ondansetron Odt [Zofran ODT] 4 mg PO Q8HR PRN #20 tab 04/28/18 Allergies Allergy/AdvReac Type Severity Reaction Status Date / Time Sulfa (Sulfonamide Allergy Rash/Hives Verified 04/30/18 13:39 Antibiotics) Review of Systems ROS Statement: Those systems with pertinent positive or pertinent negative responses have been documented in the HPI. ROS Other: All systems not noted in ROS Statement are negative. Past Medical History Past Medical History: Asthma, Fibromyalgia, Osteoarthritis (OA) Additional Past Medical History / Comment(s): CURRENTLY ON ANTIBIOTICS FOR SINUS INFECTION-DOCTOR AWARE History of Any Multi-Drug Resistant Organisms: None Reported Past Surgical History: Breast Surgery, Cholecystectomy, Hernia Repair, Hysterectomy, Tonsillectomy, Tubal Ligation, Uterine Ablation Additional Past Surgical History / Comment(s): BILATERAL TEAR DUCT,BMT, right breast lumpectomy Past Anesthesia/Blood Transfusion Reactions: No Reported Reaction Past Psychological History: Anxiety Smoking Status: Current every day smoker Past Alcohol Use History: Occasional Past Drug Use History: None Reported - Past Family History Mother Family Medical History: Cancer Additional Family Medical History / Comment(s): SKIN CANCER General Exam - General Exam Comments Initial Comments: General: The patient is awake and alert. pt does appear uncomfortable. Non toxic. Eye: Pupils are equal, round and reactive to light, extra-ocular movements are intact. No nystagmus. There is normal conjunctiva bilaterally. No signs of icterus. Ears, nose, mouth and throat: There are moist mucous membranes and no oral lesions. Neck: The neck is supple, there is no tenderness or JVD. Cardiovascular: There is a regular rate and rhythm. No murmur, rub or gallop is appreciated. Respiratory: Lungs are clear to auscultation, respirations are non-labored, breath sounds are equal. No wheezes, stridor, rales, or rhonchi. Gastrointestinal: No noted diaphoresis, jaundice, pallor, protecting postures or squirming. Symmetrical pigmentation of abdomen without signs of inflammation. No strike, no evidence of hernia. Umbilicus mildline, inverted without swelling. No dilated veins. Abdomen contour obese, no noted abdominal distention. No visible masses. No peristalsis, aortic pulsations, or ventral hernia. Bowel sounds audible in all 4 quadrants, unremarkable. No friction rubs or venous hums. Pt tender to right lower abdomen to deep palpation, no tenderness of the lower pelvic region. No rigidity or guarding. Liver edge, not palpable. Spleen edge , right and left kidney not palpable. Superior bladder margin non-tender. Special Testing: Negative Callum, cutaneous hyperesthesia. Iliopsoas. Negative Heel Jar test. No CVA tenderness. Digital rectal exam deferred. Negative frias turners or cullens sign Musculoskeletal: Normal ROM, no tenderness. Strength 5/5. Sensation intact. Pulses equal bilaterally 2+. Neurological: A&O x 3. CN II-XII intact, There are no obvious motor or sensory deficits. Coordination appears grossly intact. Speech is normal. Skin: Skin is warm and dry and no rashes or lesions are noted. No jaundice Psychiatric: Cooperative, appropriate mood & affect, normal judgment. Pelvic exam: Normal female hair pattern-shaved. [place] mucosa, moderately rugated/somewhat atrophic in appearance. Absent cervix. Small amount of discharge in vault. No odor. Limitations: no limitations Course Vital Signs 04/30/18 04/30/18 04/30/18 13:20 16:07 16:49 Temperature 98.1 F Pulse Rate 118 H 82 881 H Respiratory 18 16 8 L Rate Blood Pressure 116/84 108/64 143/90 O2 Sat by Pulse 96 97 97 Oximetry Medical Decision Making - Medical Decision Making Labs reviewed from previous visit. Trending downward. Significant improvement in AST. WBC remained elevated however slightly decreased, denies fever, chills, or night sweats. Pt does not appear toxic. Pt admits to vomiting, but states he has been decreasing and had more formed stool today. Passing gas. Pt states she can drink water. There was tenderness of the right LQ. Pt states persistent with no decrease from 2 days prior. I obtained repeat CT in case of developing acute process. No free fluid. Appendix normal. There was noted omentum in the mid abdominal wall, appears inflamed, pt pain appears lower on exam no obvious clinical correlation. pt states she had previous hernia repair as child. No hernia on exam observed or palpated. I discussed these findings and reviewed all laboratory as well as CT findings with my attending Dr. Almanza. He recommended outpatient surgical consultation with Dr. Arciniega. I discussed findings and plan with patient. She is agreeable with discharge and f/u. I discussed if symptoms worsen or unable to tolerate PO intake she must immediately return to the ER. Pt verbalized understanding. Pt states she will called surgeon immediately following visit today. Recorded discharge VS are 88HR and 18RR (error in recording. I did f/u with patient on 05/01/2018 at 11:45AM via phone call-pt states she has appointment at 2:00PM with Dr. Arciniega. She states she continues to have symptoms. I recommended return to the ER if patient believes symptoms are worsening. She states she will go to appointment but will return to ER for persistent vomiting or symptoms. - Lab Data Result diagrams: 04/30/18 13:42 04/30/18 13:42 Lab Results 04/30/18 04/30/18 04/30/18 Range/Units 13:42 13:42 15:00 WBC 14.2 H (3.8-10.6) k/uL RBC 5.17 (3.80-5.40) m/uL Hgb 14.7 (11.4-16.0) gm/dL Hct 46.2 H (34.0-46.0) % MCV 89.3 (80.0-100.0) fL MCH 28.5 (25.0-35.0) pg MCHC 31.9 (31.0-37.0) g/dL RDW 13.2 (11.5-15.5) % Plt Count 304 (150-450) k/uL Neutrophils % 70 % Lymphocytes % 21 % Monocytes % 5 % Eosinophils % 3 % Basophils % 1 % Neutrophils # 10.0 H (1.3-7.7) k/uL Lymphocytes # 3.0 (1.0-4.8) k/uL Monocytes # 0.7 (0-1.0) k/uL Eosinophils # 0.4 (0-0.7) k/uL Basophils # 0.1 (0-0.2) k/uL Sodium 139 (137-145) mmol/L Potassium 4.1 (3.5-5.1) mmol/L Chloride 104 (98-107) mmol/L Carbon Dioxide 28 (22-30) mmol/L Anion Gap 7 mmol/L BUN 9 (7-17) mg/dL Creatinine 0.92 (0.52-1.04) mg/dL Est GFR (CKD-EPI)AfAm >90 (>60 ml/min/1.73 sqM) Est GFR (CKD-EPI)NonAf 85 (>60 ml/min/1.73 sqM) Glucose 96 (74-99) mg/dL Calcium 9.6 (8.4-10.2) mg/dL Total Bilirubin 0.8 (0.2-1.3) mg/dL AST 54 H (14-36) U/L ALT 256 H (9-52) U/L Alkaline Phosphatase 124 (38-126) U/L Total Protein 6.6 (6.3-8.2) g/dL Albumin 3.9 (3.5-5.0) g/dL Amylase 74 (30-110) U/L Lipase 86 (23-300) U/L Urine Color Light Yellow Urine Appearance Clear (Clear) Urine pH 6.5 (5.0-8.0) Ur Specific [place] 1.005 (1.001-1.035) Urine Protein Negative (Negative) Urine Glucose (UA) Negative (Negative) Urine Ketones Negative (Negative) Urine Blood Negative (Negative) Urine Nitrite Negative (Negative) Urine Bilirubin Negative (Negative) Urine Urobilinogen <2.0 (<2.0) mg/dL Ur Leukocyte Esterase Negative (Negative) Trichomonas Ag (Rapid) (Negative) 04/30/18 Range/Units 16:00 WBC (3.8-10.6) k/uL RBC (3.80-5.40) m/uL Hgb (11.4-16.0) gm/dL Hct (34.0-46.0) % MCV (80.0-100.0) fL MCH (25.0-35.0) pg MCHC (31.0-37.0) g/dL RDW (11.5-15.5) % Plt Count (150-450) k/uL Neutrophils % % Lymphocytes % % Monocytes % % Eosinophils % % Basophils % % Neutrophils # (1.3-7.7) k/uL Lymphocytes # (1.0-4.8) k/uL Monocytes # (0-1.0) k/uL Eosinophils # (0-0.7) k/uL Basophils # (0-0.2) k/uL Sodium (137-145) mmol/L Potassium (3.5-5.1) mmol/L Chloride (98-107) mmol/L Carbon Dioxide (22-30) mmol/L Anion Gap mmol/L BUN (7-17) mg/dL Creatinine (0.52-1.04) mg/dL Est GFR (CKD-EPI)AfAm (>60 ml/min/1.73 sqM) Est GFR (CKD-EPI)NonAf (>60 ml/min/1.73 sqM) Glucose (74-99) mg/dL Calcium (8.4-10.2) mg/dL Total Bilirubin (0.2-1.3) mg/dL AST (14-36) U/L ALT (9-52) U/L Alkaline Phosphatase (38-126) U/L Total Protein (6.3-8.2) g/dL Albumin (3.5-5.0) g/dL Amylase (30-110) U/L Lipase (23-300) U/L Urine Color Urine Appearance (Clear) Urine pH (5.0-8.0) Ur Specific [place] (1.001-1.035) Urine Protein (Negative) Urine Glucose (UA) (Negative) Urine Ketones (Negative) Urine Blood (Negative) Urine Nitrite (Negative) Urine Bilirubin (Negative) Urine Urobilinogen (<2.0) mg/dL Ur Leukocyte Esterase (Negative) Trichomonas Ag (Rapid) Negative (Negative) Disposition Clinical Impression: Abdominal pain, Vomiting and diarrhea Disposition: HOME SELF-CARE Condition: Good Instructions: Abdominal Pain (ED) Additional Instructions: Please use medication as discussed. Please follow-up with family doctor in the next 2 days, please follow-up with Dr. Arciniega next 1-2 days. Please return to emergency room if the symptoms increase or worsen or for any other concerns. Is patient prescribed a controlled substance at d/c from ED?: No Referrals: Dallas Muhammad MD [Primary Care Provider] - 1-2 days Blue Arciniega MD [STAFF PHYSICIAN] - 1-2 days Time of Disposition: 16:30
[2018-04-30 16:50] VITALS: BP 143/90; PULSE 881; RESP 8
[2018-05-01 14:29] LABS: C. trachomatis,PCR Negative (Neg,Equiv); Chlamydia trachomatis Source Vagina; N. gonorrhoeae,PCR Negative (Neg,Equiv); Neisseria Source Vagina
== END 2018-04-30 16:45 | disposition home or self-care (01) ==
LOC: EC 13:17
DX: R10.9 Unspecified abdominal pain (principal); R11.10 Vomiting, unspecified; R19.7 Diarrhea, unspecified; J45.909 Unspecified asthma, uncomplicated; M79.7 Fibromyalgia; M19.90 Unspecified osteoarthritis, unspecified site; F41.9 Anxiety disorder, unspecified; F17.200 Nicotine dependence, unspecified, uncomplicated; Z90.49 Acquired absence of other specified parts of digestive tract; Z90.710 Acquired absence of both cervix and uterus; Z98.51 Tubal ligation status; Z98.890 Other specified postprocedural states; Z88.2 Allergy status to sulfonamides
CPT/HCPCS: 36415; 80053; 82150; 83690; 85025; 81003; 87808; 87491; 87591; 74177; 99284; 96374; 96375 ×4; 96376; 96361; J2270; J1200; J2930; J2405; Q9967

== ENCOUNTER 2018-05-01 14:42 | Inpatient (IN) | payer OTHER ==
[2018-05-01] MEDS ORDERED: ONDANSETRON 4 MG/2 ML VIAL IVP STA (14:56)
[2018-05-01] MEDS ORDERED: SODIUM CHLORIDE 0.9% 1,000 ML IV STA (14:56)
[2018-05-01] MEDS ORDERED: MORPHINE SULFATE 4 MG/ML SYRINGE IV STA (14:56)
--- NOTE | 2018-05-01 16:06 | US ---
EXAMINATION TYPE: US abdomen limited DATE OF EXAM: 05/01/2018 COMPARISON: NONE CLINICAL HISTORY: choledocholithiasis r/o (biliary/pancreas US). GB removed 2014 for being overactive , stabbing abd pain for 5 days EXAM MEASUREMENTS: Liver Length: 15.5 cm Gallbladder Wall: Surgically absent CBD: 0.3 cm Right Kidney: 8.7 x 3.9 x 4.4 cm Pancreas: wnl Liver: wnl Gallbladder: Surgically absent Evidence for sonographic Rogers's sign: no CBD: wnl Right Kidney: No hydronephrosis. IMPRESSION: Surgical absence of the gallbladder. No dilation of the common bile duct to suggest sabas docholithiasis. Otherwise unremarkable right upper quadrant ultrasound.
[2018-05-01 16:40] LABS: ALT 213 U/L (9-52); AST 46 U/L (14-36); Albumin 4.2 g/dL (3.5-5.0); Alkaline Phosphatase 134 U/L (38-126); Amylase 82 U/L (30-110); Anion Gap 8 mmol/L; Blood Urea Nitrogen 11 mg/dL (7-17); Calcium 9.8 mg/dL (8.4-10.2); Carbon Dioxide 28 mmol/L (22-30); Chloride 104 mmol/L (98-107); Glucose 90 mg/dL (74-99); Lipase 69 U/L (23-300); Potassium 3.9 mmol/L (3.5-5.1); Sodium 140 mmol/L (137-145); Total Bilirubin 0.5 mg/dL (0.2-1.3); Total Protein 6.9 g/dL (6.3-8.2)
[2018-05-01 16:51] LABS: Basophils # (A) 0.1 k/uL (0-0.2); Basophils % (A) 0 %; Eosinophils % (A) 0 %; HCT 44.2 % (34.0-46.0); Lymphocytes # (A) 3.1 k/uL (1.0-4.8); Lymphocytes % (A) 13 %; MCH 30.2 pg (25.0-35.0); MCHC 33.9 g/dL (31.0-37.0); MCV 89.3 fL (80.0-100.0); Mean Platelet Volume 6.9; Monocytes % (A) 4 %; Neutrophils # (A) 19.4 k/uL (1.3-7.7); Neutrophils % (A) 82 %; Platelet Count 281 k/uL (150-450); RBC 4.95 m/uL (3.80-5.40); WBC 23.7 k/uL (3.8-10.6)
[2018-05-01] MEDS ORDERED: NALOXONE 0.4 MG/ML 1 ML VIAL IV PRN (17:51)
[2018-05-01] MEDS ORDERED: IBUPROFEN 400 MG TAB PO PRN (17:51)
--- NOTE | 2018-05-01 17:55 | ED ---
Abdominal Pain HPI <Alf Kent - Last Filed: 05/01/18 18:10> - General Source: patient Mode of arrival: ambulatory Limitations: no limitations <Danuta Ngo - Last Filed: 05/01/18 23:30> - General Chief Complaint: Abdominal Pain Stated Complaint: abdominal pain/vomiting-revisit Time Seen by Provider: 05/01/18 14:56 - History of Present Illness Initial Comments: 27-year-old female with history of previous cholecystectomy presenting today for persistent abdominal pain. Patient has been seen previously on 04/28 and with right-sided abdominal pain nausea, vomiting and diarrhea (-) CT findings. Labs rending downward from 04/28-04/30. Pt given outpatient surgical follow-up for small herniation with possible omentum involvement. Pt was seen at 2:00PM. Pt sent from surgeon, Dr. Segura office for US to r/o choledocholithiasis. Patient denies wrapper quadrant pain, patient states the pain is right-sided mid to lower abdominal pain. Patient admits to vomiting, and dry heaving. Patient states she has no longer able tolerate by mouth intake despite taking Zofran. Patient states stool is more formed than previous history of diarrhea. Upon arrival patient's heart rate elevated remainder of vital signs within acceptable limits. (Danuta Ngo) - Related Data Home Medications Medication Instructions Recorded Confirmed ALPRAZolam [Xanax] 0.25 mg PO BID PRN 06/30/16 05/01/18 Ibuprofen [Motrin] 800 mg PO Q8H PRN 06/30/16 05/01/18 Montelukast [Singulair] 10 mg PO HS 11/02/16 05/01/18 Omeprazole 20 mg PO HS 06/06/17 05/01/18 Cetirizine HCl [Zyrtec] 10 mg PO HS 04/30/18 05/01/18 Cyclobenzaprine [Flexeril] 10 mg PO HS 04/30/18 05/01/18 HYDROcodone/APAP 5-325MG [[place] 1 tab PO TID PRN 04/30/18 05/01/18 5-325] Pregabalin [Lyrica] 50 mg PO HS 04/30/18 05/01/18 Ranitidine HCl [Zantac] 150 mg PO BID 04/30/18 05/01/18 Previous Rx's Medication Instructions Recorded Dicyclomine [Bentyl] 20 mg PO QID #20 tablet 04/28/18 Ondansetron Odt [Zofran ODT] 4 mg PO Q8HR PRN #20 tab 04/28/18 Allergies Allergy/AdvReac Type Severity Reaction Status Date / Time Sulfa (Sulfonamide Allergy Rash/Hives Verified 05/01/18 15:38 Antibiotics) Review of Systems ROS Other: All systems not noted in ROS Statement are negative. <Alf Kent - Last Filed: 05/01/18 18:10> ROS Other: All systems not noted in ROS Statement are negative. <Danuta Ngo - Last Filed: 05/01/18 23:30> ROS Statement: Those systems with pertinent positive or pertinent negative responses have been documented in the HPI. Past Medical History Past Medical History: Asthma, Fibromyalgia, Osteoarthritis (OA) Additional Past Medical History / Comment(s): CURRENTLY ON ANTIBIOTICS FOR SINUS INFECTION-DOCTOR AWARE History of Any Multi-Drug Resistant Organisms: None Reported Past Surgical History: Breast Surgery, Cholecystectomy, Hernia Repair, Hysterectomy, Tonsillectomy, Tubal Ligation, Uterine Ablation Additional Past Surgical History / Comment(s): BILATERAL TEAR DUCT,BMT, right breast lumpectomy Past Anesthesia/Blood Transfusion Reactions: No Reported Reaction Past Psychological History: Anxiety Smoking Status: Current every day smoker Past Alcohol Use History: Occasional Past Drug Use History: None Reported - Past Family History Mother Family Medical History: Cancer Additional Family Medical History / Comment(s): SKIN CANCER <Danuta Ngo - Last Filed: 05/01/18 23:30> General Exam <Alf Kent - Last Filed: 05/01/18 18:10> Limitations: no limitations <Danuta Ngo - Last Filed: 05/01/18 23:30> - General Exam Comments Initial Comments: General: The patient is awake and alert, in no distress, and does not appear acutely ill. Eye: +3 mm pupils are equal, round and reactive to light, extra-ocular movements are intact. No nystagmus. There is normal conjunctiva bilaterally. No signs of icterus. Ears, nose, mouth and throat: There are moist mucous membranes and no oral lesions. Neck: The neck is supple, there is no tenderness or JVD. Cardiovascular: There is a regular rate and rhythm. No murmur, rub or gallop is appreciated. Respiratory: Lungs are clear to auscultation, respirations are non-labored, breath sounds are equal. No wheezes, stridor, rales, or rhonchi. Gastrointestinal: No noted diaphoresis, jaundice, pallor, protecting postures or squirming. Symmetrical pigmentation of abdomen without signs of inflammation. Striae present. Umbilicus mildline, inverted without swelling. No dilated veins.N o noted abdominal distention. No visible masses. No peristalsis, aortic pulsations , or ventral hernia. Bowel sounds audible in all 4 quadrants, unremarkable. Diffuse right mid/lower tenderness, deep and light palpation. No pelvic pain to palpation. No RUQ pain to palpation or epigastric. Liver edge, not palpable. Spleen edge, right and left kidney not palpable. Superior bladder margin non- tender. Special Testing: Negative [place], [place], [place], Callum, cutaneous hyperesthesia. Iliopsoas negative. Negative Heel Jar test. No CVA tenderness. Digital rectal exam deferred. Negative frias turners or cullens sign. Musculoskeletal: Normal ROM, no tenderness. Strength 5/5. Sensation intact. Radial pulses equal bilaterally 2+. Neurological: A&O x 3. CN II-XII intact, There are no obvious motor or sensory deficits. Coordination appears grossly intact. Speech is normal. Skin: Skin is warm and dry and no rashes or lesions are noted. Decreased tugor. Psychiatric: Cooperative, appropriate mood & affect, normal judgment. (Danuta Ngo) Vital Signs 05/01/18 05/01/18 05/01/18 14:47 16:07 16:30 Temperature 98.2 F Pulse Rate 106 H 93 89 Pulse Rate [ Pulse Oximetery ] Respiratory 18 20 18 Rate Blood Pressure 114/79 97/63 101/73 Blood Pressure [Right Arm] O2 Sat by Pulse 98 98 100 Oximetry 05/01/18 05/01/18 18:56 19:37 Temperature 97.7 F Pulse Rate 85 Pulse Rate [ 83 Pulse Oximetery ] Respiratory 20 14 Rate Blood Pressure 118/77 Blood Pressure 131/84 [Right Arm] O2 Sat by Pulse 98 98 Oximetry Medical Decision Making - Lab Data Result diagrams: 05/01/18 15:50 05/01/18 15:50 <Alf Kent - Last Filed: 05/01/18 18:10> - Lab Data Result diagrams: 05/01/18 15:50 05/01/18 15:50 <Danuta Ngo - Last Filed: 05/01/18 23:30> - Medical Decision Making Patient reevaluated by myself, Dr. Kent. Patient has had nausea vomiting abdominal pain over the past 5 days. Patient states her abdominal discomfort is mostly right lower abdomen. Abdominal pain on exam is mild to moderate and diffuse, somewhat in the right lower and right upper and epigastric region. CT and reports reviewed from the last couple of visits. Ultrasound report reviewed. Case was discussed in detail with Dr. Arciniega who did see this patient earlier today. He would like patient admitted to medicine with consults for himself and gastroenterology. Case was also discussed in detail with Dr. cox, who will admit If Dr. Kingston, who covers for Dr. Muhammad. (Alf Kent) Patient presenting for persistent nausea and vomiting as well as right-sided abdominal pain. Previous 2 CTs negative. No signs concerning for appendicitis. Pelvic ultrasound negative. Right upper quadrant abdominal ultrasound obtained revealing no signs concerning for choledocholithiasis. Patient does have mild elevation of alk phos. Persistent elevation of ALT. AST has decreased significantly. Lactic acid within normal limits. Active missing a consultation who recommended admission. Patient admitted to medicine with missing on consult as well as gastroenterology. Attending provider spoke with admitting practitioner with case is discussed in detail. Patient admitted in transfer to the floor in stable condition, for further evaluation and treatment of right sided abdominal pain, nausea and vomiting. Patient will receive IV hydration. No further orders from admitting providers at this time (Danuta Ngo) - Lab Data Lab Results 05/01/18 05/01/18 05/01/18 Range/Units 15:50 15:50 15:50 WBC 23.7 H (3.8-10.6) k/uL RBC 4.95 (3.80-5.40) m/uL Hgb 15.0 (11.4-16.0) gm/dL Hct 44.2 (34.0-46.0) % MCV 89.3 (80.0-100.0) fL MCH 30.2 (25.0-35.0) pg MCHC 33.9 (31.0-37.0) g/dL RDW 13.0 (11.5-15.5) % Plt Count 281 (150-450) k/uL Neutrophils % 82 % Lymphocytes % 13 % Monocytes % 4 % Eosinophils % 0 % Basophils % 0 % Neutrophils # 19.4 H (1.3-7.7) k/uL Lymphocytes # 3.1 (1.0-4.8) k/uL Monocytes # 1.0 (0-1.0) k/uL Eosinophils # 0.0 (0-0.7) k/uL Basophils # 0.1 (0-0.2) k/uL Sodium 140 (137-145) mmol/L Potassium 3.9 (3.5-5.1) mmol/L Chloride 104 (98-107) mmol/L Carbon Dioxide 28 (22-30) mmol/L Anion Gap 8 mmol/L BUN 11 (7-17) mg/dL Creatinine 0.86 (0.52-1.04) mg/dL Est GFR (CKD-EPI)AfAm >90 (>60 ml/min/1.73 sqM) Est GFR (CKD-EPI)NonAf >90 (>60 ml/min/1.73 sqM) Glucose 90 (74-99) mg/dL Plasma Lactic Acid Erik 1.2 (0.7-2.0) mmol/L Calcium 9.8 (8.4-10.2) mg/dL Total Bilirubin 0.5 (0.2-1.3) mg/dL AST 46 H (14-36) U/L ALT 213 H (9-52) U/L Alkaline Phosphatase 134 H (38-126) U/L Total Protein 6.9 (6.3-8.2) g/dL Albumin 4.2 (3.5-5.0) g/dL Amylase 82 (30-110) U/L Lipase 69 (23-300) U/L Disposition <Alf Kent - Last Filed: 05/01/18 18:10> Is patient prescribed a controlled substance at d/c from ED?: No Time of Disposition: 17:55 Decision to Admit Reason: Admit from EC Decision Date: 05/01/18 Decision Time: 17:55 <Danuta Ngo - Last Filed: 05/01/18 23:30> Clinical Impression: Intractable abdominal pain, Leukocytosis, Blood alkaline phosphatase increased compared with prior measurement, Increased liver enzymes Disposition: ADMITTED IP TO THIS [facility] Condition: Stable Referrals: Dallas Muhammad MD [Primary Care Provider] - 1-2 days
[2018-05-01] MEDS ORDERED: ALPRAZolam 0.25 MG TAB PO STA (18:24)
[2018-05-01] MEDS: MORPHINE SULFATE 4 MG/ML SYRINGE IV PRN (19:05)
[2018-05-01] MEDS: SODIUM CHLORIDE 0.9% 1,000 ML IV SCH (19:06)
[2018-05-01] MEDS: PANTOPRAZOLE 40 MG/10 ML VIAL IVP SCH (22:55)
[2018-05-02] MEDS: MORPHINE SULFATE 4 MG/ML SYRINGE IV PRN ×6 (00:29→21:37)
[2018-05-02] MEDS: ALPRAZolam 0.25 MG TAB PO PRN ×4 (01:57→23:05)
[2018-05-02] MEDS: ONDANSETRON 4 MG/2 ML VIAL IVP PRN ×4 (05:09→23:05)
[2018-05-02] MEDS: PANTOPRAZOLE 40 MG/10 ML VIAL IVP SCH (07:30)
[2018-05-02 08:07] LABS: Glucose,Whole Blood 86 mg/dL (75-99)
[2018-05-02 09:25] LABS: Basophils # (A) 0.1 k/uL (0-0.2); Basophils % (A) 1 %; Eosinophils # (A) 0.1 k/uL (0-0.7); Eosinophils % (A) 1 %; HCT 37.5 % (34.0-46.0); HGB 12.5 gm/dL (11.4-16.0); Lymphocytes # (A) 3.7 k/uL (1.0-4.8); Lymphocytes % (A) 33 %; MCH 30.4 pg (25.0-35.0); MCHC 33.3 g/dL (31.0-37.0); MCV 91.3 fL (80.0-100.0); Mean Platelet Volume 6.9; Monocytes # (A) 0.5 k/uL (0-1.0); Monocytes % (A) 5 %; Neutrophils # (A) 6.7 k/uL (1.3-7.7); Neutrophils % (A) 61 %; Platelet Count 229 k/uL (150-450); RBC 4.11 m/uL (3.80-5.40); RDW 13.2 % (11.5-15.5); WBC 11.1 k/uL (3.8-10.6)
[2018-05-02 09:30] LABS: ALT 167 U/L (9-52); AST 44 U/L (14-36); Alkaline Phosphatase 108 U/L (38-126); Anion Gap 4 mmol/L; Blood Urea Nitrogen 12 mg/dL (7-17); Calcium 8.4 mg/dL (8.4-10.2); Carbon Dioxide 25 mmol/L (22-30); Chloride 110 mmol/L (98-107); Glucose 83 mg/dL (74-99); Potassium 3.9 mmol/L (3.5-5.1); Sodium 139 mmol/L (137-145); Total Bilirubin 0.5 mg/dL (0.2-1.3); Total Protein 5.1 g/dL (6.3-8.2)
[2018-05-02] MEDS: SODIUM CHLORIDE 0.9% 1,000 ML IV SCH ×2 (09:38→21:34)
--- NOTE | 2018-05-02 11:18 | P.GSCN ---
History of Present Illness Consult date: 05/02/18 Reason for Consult: abdominal pain Requesting physician: Danuta Ngo History of present illness: CHIEF COMPLAINT: Abdominal pain. HISTORY OF PRESENT ILLNESS: 27-year-old female who presented to the ER due to abdominal pain. Patient reports she developed epigastric pain on Monday which then transitioned to right lower quadrant pain. She reports it feels like someone is stabbing her. Patient states she has been nauseous since Monday and unable to keep down any liquids. Patient was evaluated in the ER on two previous occasions: April 28 and April 30. She followed up with Dr. Arciniega yesterday who recommended she come to the ER for further evaluation. Patient continues to complain of severe right lower quadrant pain this morning. She denies any episodes of emesis. She is requesting ice chips this morning. IMAGIN. CT Abdomen and pelvis 04/30/2018: Focal fat stranding along the right paramedian mid abdominal wall just above the level of the umbilicus. Could represent tenia abdominal wall defect containing some herniated and inflamed omental fat. Appendix appears normal. There is otherwise no acute inflammatory process identified in the abdomen or pelvis to explain patient's symptoms. 2. Abdominal ultrasound 05/01/2018: Surgical absence of gallbladder. No dilation of the common bile duct to suggest choledocholithiasis. Common bile duct 0.3 cm. LABS: WBC 23.7. AST 46. ALT 213. Alkaline phosphatase 134. PAST MEDICAL HISTORY: See list. PAST SURGICAL HISTORY: Cholecystectomy in 2014. MEDICATIONS: See list. ALLERGIES: See list. SOCIAL HISTORY: Daily cigarette smoker. REVIEW OF ORGAN SYSTEMS: CONSTITUTIONAL: Denies fever or chills. HEENT: No troubles with vision or hearing. No reports of dysphagia. ENDOCRINE: No reports of thyroid disorders. CARDIOVASCULAR: Denies chest pain or pressure. RESPIRATORY: No shortness of breath or pneumonia. GASTROINTESTINAL: Reports epigastric pain that has transitioned to right lower quadrant. Reports nausea and vomiting. NEURO: No reports of stroke or seizure disorders. PSYCH: No depression or suicidal ideation HEMATOLOGIC: No easy bruising or bleeding LYMPHATIC: The patient denies any lumps and bumps around the neck. GENITOURINARY: Denies any blood in urine or increased urinary frequency. MUSCULOSKELETAL: Denies back pain, stiffness or joint arthritis. SKIN: Denies history or rash or cellulitis. PHYSICAL EXAM: VITAL SIGNS: Currently stable. GENERAL: Well-developed in no acute distress. HEENT: No sclera icterus. Extraocular movements grossly intact. Moist buccal mucosa. Head is atraumatic, normocephalic. Hears conversational speech. No nasal drainage. NECK: Supple without lymphadenopathy. CHEST: Non-labored respirations and equal bilateral excursions. CARDIOVASCULAR: Regular rate with regular rhythm. Palpable 2+ radial pulses. ABDOMEN: Soft. Nondistended. Tenderness upon palpation of right lower quadrant. MUSCULOSKELETAL: No clubbing, cyanosis or edema. NEUROLOGIC: No focal or lateralizing signs. Cranial nerves II through XII grossly intact. PSYCH: Alert and oriented x 3 SKIN: Well perfused. Good skin turgor. ASSESSMENT: 1. Right lower quadrant abdominal pain, CT reveals normal appearing appendix 2. History of cholecystectomy, 2014 3. Transaminitis 4. Leukocytosis PLAN: Patient may begin on ice chips. Pain control. Continue IV fluids. No surgical intervention at this time. Await GI evaluation. Nurse practitioner note has been reviewed by physician. Signing provider agrees with the documented findings, assessment, and plan of care. Past Medical History Past Medical History: Asthma, Fibromyalgia, Osteoarthritis (OA) Additional Past Medical History / Comment(s): CURRENTLY ON ANTIBIOTICS FOR SINUS INFECTION-DOCTOR AWARE History of Any Multi-Drug Resistant Organisms: None Reported Past Surgical History: Breast Surgery, Cholecystectomy, Hernia Repair, Hysterectomy, Tonsillectomy, Tubal Ligation, Uterine Ablation Additional Past Surgical History / Comment(s): BILATERAL TEAR DUCT,BMT, right breast lumpectomy Past Anesthesia/Blood Transfusion Reactions: No Reported Reaction Past Psychological History: Anxiety Smoking Status: Current every day smoker Past Alcohol Use History: Occasional Past Drug Use History: None Reported - Past Family History Mother Family Medical History: Cancer Additional Family Medical History / Comment(s): SKIN CANCER Medications and Allergies Home Medications Medication Instructions Recorded Confirmed Type ALPRAZolam [Xanax] 0.25 mg PO BID PRN 06/30/16 05/01/18 History Ibuprofen [Motrin] 800 mg PO Q8H PRN 06/30/16 05/01/18 History Montelukast [Singulair] 10 mg PO HS 11/02/16 05/01/18 History Omeprazole 20 mg PO HS 06/06/17 05/01/18 History Dicyclomine [Bentyl] 20 mg PO QID #20 tablet 04/28/18 05/01/18 Rx Ondansetron Odt [Zofran ODT] 4 mg PO Q8HR PRN #20 tab 04/28/18 05/01/18 Rx Cetirizine HCl [Zyrtec] 10 mg PO HS 04/30/18 05/01/18 History Cyclobenzaprine [Flexeril] 10 mg PO HS 04/30/18 05/01/18 History HYDROcodone/APAP 5-325MG [Gervais 1 tab PO TID PRN 04/30/18 05/01/18 History 5-325] Pregabalin [Lyrica] 50 mg PO HS 04/30/18 05/01/18 History Ranitidine HCl [Zantac] 150 mg PO BID 04/30/18 05/01/18 History Allergies Allergy/AdvReac Type Severity Reaction Status Date / Time Sulfa (Sulfonamide Allergy Rash/Hives Verified 05/01/18 15:38 Antibiotics) Surgical - Exam Vital Signs Temp Pulse Resp BP Pulse Ox 98.2 F 106 H 18 114/79 98 05/01/18 14:47 05/01/18 14:47 05/01/18 14:47 05/01/18 14:47 05/01/18 14:47 Results - Labs 05/02/18 08:46 05/02/18 08:46 Abnormal Lab Results - Last 24 Hours (Table) 05/01/18 05/01/18 05/02/18 Range/Units 15:50 15:50 08:46 WBC 23.7 H 11.1 H (3.8-10.6) k/uL Neutrophils # 19.4 H (1.3-7.7) k/uL Chloride (98-107) mmol/L AST 46 H (14-36) U/L ALT 213 H (9-52) U/L Alkaline Phosphatase 134 H (38-126) U/L Total Protein (6.3-8.2) g/dL Albumin (3.5-5.0) g/dL 05/02/18 Range/Units 08:46 WBC (3.8-10.6) k/uL Neutrophils # (1.3-7.7) k/uL Chloride 110 H (98-107) mmol/L AST 44 H (14-36) U/L ALT 167 H (9-52) U/L Alkaline Phosphatase (38-126) U/L Total Protein 5.1 L (6.3-8.2) g/dL Albumin 3.0 L (3.5-5.0) g/dL Diabetes panel 05/01/18 05/02/18 Range/Units 15:50 08:46 Sodium 140 139 (137-145) mmol/L Potassium 3.9 3.9 (3.5-5.1) mmol/L Chloride 104 110 H (98-107) mmol/L Carbon Dioxide 28 25 (22-30) mmol/L BUN 11 12 (7-17) mg/dL Creatinine 0.86 0.95 (0.52-1.04) mg/dL Glucose 90 83 (74-99) mg/dL Calcium 9.8 8.4 (8.4-10.2) mg/dL AST 46 H 44 H (14-36) U/L ALT 213 H 167 H (9-52) U/L Alkaline Phosphatase 134 H 108 (38-126) U/L Total Protein 6.9 5.1 L (6.3-8.2) g/dL Albumin 4.2 3.0 L (3.5-5.0) g/dL Calcium panel 05/01/18 05/02/18 Range/Units 15:50 08:46 Calcium 9.8 8.4 (8.4-10.2) mg/dL Albumin 4.2 3.0 L (3.5-5.0) g/dL Pituitary panel 05/01/18 05/02/18 Range/Units 15:50 08:46 Sodium 140 139 (137-145) mmol/L Potassium 3.9 3.9 (3.5-5.1) mmol/L Chloride 104 110 H (98-107) mmol/L Carbon Dioxide 28 25 (22-30) mmol/L BUN 11 12 (7-17) mg/dL Creatinine 0.86 0.95 (0.52-1.04) mg/dL Glucose 90 83 (74-99) mg/dL Calcium 9.8 8.4 (8.4-10.2) mg/dL Adrenal panel 05/01/18 05/02/18 Range/Units 15:50 08:46 Sodium 140 139 (137-145) mmol/L Potassium 3.9 3.9 (3.5-5.1) mmol/L Chloride 104 110 H (98-107) mmol/L Carbon Dioxide 28 25 (22-30) mmol/L BUN 11 12 (7-17) mg/dL Creatinine 0.86 0.95 (0.52-1.04) mg/dL Glucose 90 83 (74-99) mg/dL Calcium 9.8 8.4 (8.4-10.2) mg/dL Total Bilirubin 0.5 0.5 (0.2-1.3) mg/dL AST 46 H 44 H (14-36) U/L ALT 213 H 167 H (9-52) U/L Alkaline Phosphatase 134 H 108 (38-126) U/L Total Protein 6.9 5.1 L (6.3-8.2) g/dL Albumin 4.2 3.0 L (3.5-5.0) g/dL
--- NOTE | 2018-05-02 12:40 | P.CONS ---
History of Present Illness - Reason for Consult Consult date: 05/02/18 Abdominal pain Requesting physician: Raudel Kingston - Chief Complaint Abdominal pain nausea vomiting - History of Present Illness 27-year-old female with a history of elevated liver enzymes as a child etiology unclear, positive FERMIN in the past evaluated by rheumatology no history of rheumatoid arthritis lupus or other autoimmune diseases, obesity, asthma, fibromyalgia, anxiety, cholecystectomy recently admitted with right-sided abdominal pain nausea vomiting diarrhea that started last Monday. Diarrhea subsided 3 days ago. Denies hematemesis he's had melena fever or chills. Pain is located mostly in the right mid to right lower quadrant as well as slightly in the midepigastrium. She takes Motrin 800 mg 3 times a day for chronic pain. Ultrasound abdomen no dilation of CBD 0.3 cm. Admission white count 23.7 presently 11.1. Hemoglobin 12.5. Platelet 229. LFTs this past week range total bilirubin 0.5-0.8. AST 44-159. ALT 167-259. Alk phos 103-134. Hepatitis screen nonreactive. Lipase 69. HCG not detected on 04/28/2018 When reviewing prior medical records patient has chronic elevation of mild transaminitis for more than a year with normal bilirubin. She underwent laparoscopic cholecystectomy at [facility] in 2015 for "overactive gallbladder". Patient is unsure if she had gallstones. CT abdomen and pelvis 04/28/[address] abdomen and pelvis 04/30/2018 reported focal fat stranding along the right paramedian midabdominal wall just above the level of the umbilicus. Possibly representing tiny abdominal wall defect some minimal hernia and inflamed omental fat. Appendix normal. She has been evaluated by general surgery no surgical plans at this time. EGD colonoscopy June 2017 reevaluation of GERD chronic diarrhea abdominal pain findings of mild antral gastritis small hiatal hernia LA grade B reflux esophagitis. Colonoscopy was normal. Patient takes PPI therapy twice daily at home. No alcohol. Review of Systems Constitutional: Denies fever, chills, sweats, weight gain, or loss. HEENT: Negative for migraines, blurred vision or loss, earaches, drainage, tinnitus, oral mucosal lesions, dysphagia, or odynophagia. CARDIAC: Negative for chest pain, arrhythmias, or palpitation. RESPIRATORY: Negative for shortness of breath, hemoptysis, cough, or sputum production. GI: See HPI for pertinent findings. : Negative for hematuria, urgency, frequency, polyuria, or dysuria. GYNc: Denies possibility of . Negative vaginal discharge. MUSCULOSKELETAL: Negative for muscle aches, swelling, arthritis, and arthralgias. NEUROLOGIC: Negative for stroke or TIA. ENDOCRINE: Negative for thyroid problems. SKIN: Negative for rash or itching. PSYCHIATRIC: Negative history for depression and anxietyle Past Medical History Past Medical History: Asthma, Fibromyalgia, Osteoarthritis (OA) Additional Past Medical History / Comment(s): CURRENTLY ON ANTIBIOTICS FOR SINUS INFECTION-DOCTOR AWARE History of Any Multi-Drug Resistant Organisms: None Reported Past Surgical History: Breast Surgery, Cholecystectomy, Hernia Repair, Hysterectomy, Tonsillectomy, Tubal Ligation, Uterine Ablation Additional Past Surgical History / Comment(s): BILATERAL TEAR DUCT,BMT, right breast lumpectomy Past Anesthesia/Blood Transfusion Reactions: No Reported Reaction Past Psychological History: Anxiety Smoking Status: Current every day smoker Past Alcohol Use History: Occasional Past Drug Use History: None Reported - Past Family History Mother Family Medical History: Cancer Additional Family Medical History / Comment(s): SKIN CANCER Medications and Allergies Home Medications Medication Instructions Recorded Confirmed Type ALPRAZolam [Xanax] 0.25 mg PO BID PRN 06/30/16 05/01/18 History Ibuprofen [Motrin] 800 mg PO Q8H PRN 06/30/16 05/01/18 History Montelukast [Singulair] 10 mg PO HS 11/02/16 05/01/18 History Omeprazole 20 mg PO HS 06/06/17 05/01/18 History Dicyclomine [Bentyl] 20 mg PO QID #20 tablet 04/28/18 05/01/18 Rx Ondansetron Odt [Zofran ODT] 4 mg PO Q8HR PRN #20 tab 04/28/18 05/01/18 Rx Cetirizine HCl [Zyrtec] 10 mg PO HS 04/30/18 05/01/18 History Cyclobenzaprine [Flexeril] 10 mg PO HS 04/30/18 05/01/18 History HYDROcodone/APAP 5-325MG [Acra 1 tab PO TID PRN 04/30/18 05/01/18 History 5-325] Pregabalin [Lyrica] 50 mg PO HS 04/30/18 05/01/18 History Ranitidine HCl [Zantac] 150 mg PO BID 04/30/18 05/01/18 History Allergies Allergy/AdvReac Type Severity Reaction Status Date / Time Sulfa (Sulfonamide Allergy Rash/Hives Verified 05/01/18 15:38 Antibiotics) Iodinated Contrast- Oral and AdvReac Mild Itching Verified 05/04/18 08:02 IV Dye Physical Exam Vitals: Vital Signs Temp Pulse Pulse Resp BP BP Pulse Ox 05/02/18 07:10 97.5 F L 77 16 109/55 98 05/01/18 23:30 98.2 F 87 16 122/75 98 05/01/18 19:37 97.7 F 83 14 131/84 98 05/01/18 18:56 85 20 118/77 98 05/01/18 16:30 89 18 101/73 100 05/01/18 16:07 93 20 97/63 98 05/01/18 14:47 98.2 F 106 H 18 114/79 98 Intake and Output 05/01/18 05/02/18 05/02/18 22:59 06:59 14:59 Intake Total 225 225 Balance 225 225 Intake: Intake, IV Titration 225 225 Amount Sodium Chloride 0.9% 1, 225 225 000 ml @ 75 mls/hr IV . [id number] [facility] Rx#:[id number] Other: Voiding Method Toilet # Voids 1 1 General appearance: The patient is alert, oriented, in no acute distress. HET: Head is normocephalic and atraumatic. Pupils are equal and reactive. Oropharynx is clear without lesions. Neck: Supple without lymphadenopathy. Trachea midline. Heart: S1 S2. Regular rate and rhythm. Lungs: No crackles or wheezes are heard. Abdomen: Soft, tenderness midepigastrium and moderate tenderness right mid quadrant right lower quadrant, nondistended with bowel sounds. No peritoneal signs. No palpable organomegaly or masses. Extremities: Normal skin color and turgor. No cyanosis, rash, ulceration, clubbing, or edema. Radial and pedal pulses are 2/4 bilaterally. Neurological: No focal deficits. Strength and sensation are grossly intact. Results CBC & Chem 7: 05/04/18 07:47 05/04/18 07:47 Labs: Abnormal Lab Results - Last 24 Hours (Table) 05/01/18 05/01/18 05/02/18 Range/Units 15:50 15:50 08:46 WBC 23.7 H 11.1 H (3.8-10.6) k/uL Neutrophils # 19.4 H (1.3-7.7) k/uL Chloride (98-107) mmol/L AST 46 H (14-36) U/L ALT 213 H (9-52) U/L Alkaline Phosphatase 134 H (38-126) U/L Total Protein (6.3-8.2) g/dL Albumin (3.5-5.0) g/dL 05/02/18 Range/Units 08:46 WBC (3.8-10.6) k/uL Neutrophils # (1.3-7.7) k/uL Chloride 110 H (98-107) mmol/L AST 44 H (14-36) U/L ALT 167 H (9-52) U/L Alkaline Phosphatase (38-126) U/L Total Protein 5.1 L (6.3-8.2) g/dL Albumin 3.0 L (3.5-5.0) g/dL CT scan - abdomen: report reviewed (Dr. Kaye) US - abdomen: report reviewed (Dr. Kaye) Assessment and Plan (1) Abdominal pain Narrative/Plan: 27-year-old female with a history of positive FERMIN, elevated liver enzymes as a child per history, cholecystectomy unsure if cholelithiasis was present admitted with 5 day history of intractable right-sided abdominal pain nausea vomiting nonbloody diarrhea; diarrhea since resolved. Pain is persistent toward mid epigastrium as well as the right side of the abdomen. CT 2 abdomen and pelvis completed no evidence of appendicitis general surgery following. Patient takes NSAIDs 3 times daily for chronic pain underlying peptic ulcer disease NSAID related esophagitis gastritis duodenitis cannot be excluded. Current Visit: No Status: Acute Code(s): R10.9 - UNSPECIFIED ABDOMINAL PAIN SNOMED Code(s): 57187815 (2) Transaminitis Narrative/Plan: History of childhood elevation of liver enzymes etiology unclear with persistent mild elevation of transaminitis for at least a year duration with normal bilirubin and alkaline phosphatase underlying nonalcoholic fatty liver disease underlying chronic liver disease autoimmune disease cannot be excluded. Other differentials to consider an cannot be excluded at this time is underlying choledocholithiasis. Current Visit: Yes Status: Acute Code(s): R74.0 - NONSPEC ELEV OF LEVELS OF TRANSAMNS & LACTIC ACID DEHYDRGNSE SNOMED Code(s): 295364308 (3) Leukocytosis Current Visit: Yes Status: Acute Code(s): D72.829 - ELEVATED WHITE BLOOD CELL COUNT, UNSPECIFIED SNOMED Code(s): 361678480 Plan: 1. EGD this afternoon. Protonix 40 mg twice daily. 2. Serologic workup for chronic liver disease. We'll obtain cholecystectomy operative report from [facility] and review if cholelithiasis was present. MRCP discussed. We'll follow closely with you. Thank you for this kind referral and the opportunity to participate in the care of your patient. This consultation was discussed with Dr. Kaye. The impression and plan of care have been directed as dictated.
[2018-05-02] MEDS: DICYCLOMINE 20 MG TAB PO SCH ×3 (12:50→23:05)
[2018-05-02] MEDS: FAMOTIDINE 20 MG TAB PO SCH ×2 (12:50→22:21)
[2018-05-02] MEDS ORDERED: PROPOFOL 10 MG/ML 20 ML VIAL IV ONE (15:27)
[2018-05-02] MEDS ORDERED: LIDOCAINE 1% INJ 10MG/ML (20 ML MDV) ONE (15:27)
[2018-05-02] MEDS ORDERED: SODIUM CHLORIDE 0.9% 500 ML 500 ML IV ONE (15:31)
--- NOTE | 2018-05-02 15:44 | P.PCN ---
Date of Procedure: 05/02/18 Description of Procedure: BRIEF HISTORY: 27-year-old female with a history of asthma, fibromyalgia, anxiety, cholecystectomy recently admitted with right-sided abdominal pain nausea vomiting diarrhea that started last Monday. Diarrhea subsided 3 days ago. Denies hematemesis he's had melena fever or chills. Pain is located mostly in the right mid to right lower quadrant as well as slightly in the midepigastrium. She takes Motrin 800 mg 3 times a day for chronic pain. Ultrasound abdomen no dilation of CBD 0.3 cm. Admission white count 23.7 presently 11.1. Hemoglobin 12.5. Platelet 229. LFTs this past week range total bilirubin 0.5-0.8. AST 44-159. ALT 167-259. Alk phos 103-134. Hepatitis screen nonreactive. Lipase 69. HCG not detected on 04/28/2018 When reviewing prior medical records patient has chronic elevation of mild transaminitis for more than a year with normal bilirubin. She underwent laparoscopic cholecystectomy at [facility] in 2014 for "overactive gallbladder". Patient is unsure if she had gallstones. CT abdomen and pelvis 04/28/[address] abdomen and pelvis 04/30/2018 reported focal fat stranding along the right paramedian midabdominal wall just above the level of the umbilicus. Possibly representing tiny abdominal wall defect some minimal hernia and inflamed omental fat. Appendix normal. EGD colonoscopy June 2017 reevaluation of GERD chronic diarrhea abdominal pain findings of mild antral gastritis small hiatal hernia LA grade B reflux esophagitis. Colonoscopy was normal. Patient takes PPI therapy twice daily at home. No alcohol.. PROCEDURE PERFORMED: Esophagogastroduodenoscopy with biopsy. PREOPERATIVE DIAGNOSIS: Abdominal pain, nausea and vomiting, history of GERD. ESTIMATED BLOOD LOSS: Minimal. IV sedation per anesthesia. PROCEDURE: After informed consent was obtained, the patient was brought into the endoscopy unit. IV sedation was administered by Anesthesia under continuous monitoring. Initially the Olympus GIF-190 video endoscope was inserted into the mouth. Esophagus intubated without any difficulty. It was gradually advanced into the stomach and duodenum and carefully examined. The bulb and the second part of the duodenum appeared normal, with biopsies taken. The scope at this time was withdrawn to the stomach, adequately insufflated with air, and upon careful examination, mucosa of the antrum, body, cardia and the fundus appeared grossly normal except for some mild scattered erythema in the antrum and body with biopsies taken. The scope was then withdrawn into the esophagus. The GE junction was located at 36 cm from the incisors. The esophagus appeared normal. There were no erosions or ulcerations seen and the patient tolerated the procedure well. IMPRESSION: 1. No pathology to explain patient's symptoms of abdominal pain, nausea and vomiting. 2. Mild gastritis of antrum and body, biopsied. Duodenal biopsies. RECOMMENDATIONS: The findings of this examination were discussed with the patient. Okay for diet. Continue to monitor clinically. Continue PPI therapy. Continue symptomatic treatment. Await pathology from biopsies.
[2018-05-02] MEDS ORDERED: IOPAMIDOL-300 CONTRAST 30 ML VIAL (ORAL USE) PO PRN (16:28)
--- NOTE | 2018-05-02 17:12 | HP ---
HISTORY AND PHYSICAL DATE OF ADMISSION: 05/01/2018 DATE OF SERVICE: 05/02/2018 PRESENTING COMPLAINT: Abdominal pain. HISTORY OF PRESENTING COMPLAINT: This is a 27-year-old patient who follows with Dr. Aram Muhammad out of [facility]. The patient had a cholecystectomy in January of 2015 at [facility]. The patient 4 days ago started with epigastric pain. The next two days, she had some diarrhea. Subsequently, the pain moved to the right lower quadrant, has remained there. It is rather sharp in nature. Dull at all times and sometimes feels like a stabbing like a knife in there. Nausea and vomiting is present. Patient not able to keep anything down for the last 5 days. There has been no obvious fever or chills. Denies any discoloration of urine. Normally patient has a bowel movement 1-3 times a day, sometimes none since a gallbladder surgery. The patient does have chronic pain and takes Motrin 800 mg up to 3 times a day for arthritis of the spine. The patient also is a smoker about a half a day, had asthma as a child. The patient has nasal stuffiness, congested, sneezing, also some short of breath, cough, wheezing, bringing up some clear sputum. No fever. No chills. Gastroenterology was earlier consulted. REVIEW OF SYSTEMS: CONSTITUTIONAL: Tired. HEENT as above. RESPIRATORY: As above. CARDIOVASCULAR: None. GASTROINTESTINAL: As above. GENITOURINARY: None. MUSCULOSKELETAL: None. DERMATOLOGICAL, HEMATOLOGIC, LYMPHATICS: None. PSYCHIATRY: None. NEUROLOGICAL: None. PAST MEDICAL HISTORY: Asthma as a child, fibromyalgia, osteoarthritis. PAST SURGICAL HISTORY: Breast surgery, cholecystectomy, hernia repair, hysterectomy, tonsillectomy, tubal ligation, bilateral tear duct, right breast lumpectomy. PSYCH HISTORY: Anxiety. SOCIAL HISTORY: Smoking half a pack a day for close to 13 years. Alcohol occasionally. Lives with a boyfriend and 2 children. FAMILY HISTORY: Skin cancer. HOME MEDICATIONS: 1. Zantac 150 mg p.o. b.i.d. 2. Lyrica 50 mg q.h.s. 3. Zofran 4 mg p.o. q.8h p.r.n. 4. Omeprazole 20 mg q.h.s. 5. Singulair 10 mg q.h.s. 6. Motrin 800 mg q.8h p.r.n. 7. [place] 5 one tablet p.o. t.i.d. p.r.n. 8. Bentyl 20 mg p.o. q.i.d. 9. Flexeril 10 mg q.h.s. 10.Zyrtec 10 mg q.h.s. 11.Xanax 0.25 p.o. b.i.d. p.r.n. ALLERGIES: SULFA. PHYSICAL EXAMINATION: VITAL SIGNS: Vital signs on presentation temperature 98.2, pulse 106, respiratory 18, blood pressure 114/79, pulse ox 98% on room air. The patient has remained afebrile. GENERAL APPEARANCE: Well built, BMI 43.9, sitting up, occasional cough, congested. EYES: Pupils equal. Conjunctivae normal. HEENT: Nasal stuffiness. Oral cavity normal. External appearance of nose and ears normal. Oral cavity normal. NECK: JVD not raised. Mass not palpable. RESPIRATORY: Effort increased. LUNGS: Some expiratory wheezing and some expiratory crackles. CARDIOVASCULAR: 1st and 2nd sounds normal. No edema. ABDOMEN: Some right lower quadrant tenderness. No guarding or rigidity. LYMPHATIC: No lymph nodes palpable in the neck and axilla. PSYCHIATRY: Alert and oriented x3. Mood and affect normal. NEUROLOGICAL: Pupils equal. Cranial nerves grossly intact. Power and sensation grossly intact. INVESTIGATIONS: White count 23.7, hemoglobin 15, potassium 3.9, BUN 11, creatinine 0.86, AST 46, ALT 213, repeat 44 and 167. Total bilirubin is normal. Amylase and lipase is normal. Abdominal ultrasound revealed surgical absence of the gallbladder. EGD later on today showed minimal gastritis. ASSESSMENT: 1. This is a patient who presents with 5 days of abdominal pain initially in the epigastric and right lower quadrant. Some elevated white count. No fever. No chills. No change in bowel pattern. The patient could be having acute ileitis, could be from a viral component. 2. Intermittent asthma with acute exacerbation probably from viral tracheobronchitis. 3. Acute sinusitis. 4. Chronic fibromyalgia. 5. Primary osteoarthritis of the spine. 6. Morbid obesity, BMI 43.9. PLAN: Patient started on DuoNeb 4 times a day, oral prednisone. We will also give Claritin-D because of sinus symptoms. Gastroenterology was consulted who did do the EGD today that was unremarkable. We will do a CT scan of the abdomen and pelvis. Care was discussed with the patient and also Georgette from Gastroenterology. Smoking cessation counseling was done with the patient explaining that will definitely make her asthma worse. Given a nicotine patch. More than 3 minutes was spent on this aspect of the case. Copy to Dr. Aram Muhammad. MMODL / IJN: [id number] /
[2018-05-02] MEDS: IPRATROPIUM-ALBUTEROL 3 ML NEB INHALATION SCH ×2 (18:11→20:46)
[2018-05-02] MEDS: NICOTINE 14MG/24HR PATCH TRANSDERM SCH (19:21)
[2018-05-02] MEDS: predniSONE 20 MG TAB PO SCH (19:21)
[2018-05-02] MEDS: ENOXAPARIN 40 MG/0.4 ML SYRINGE SQ SCH (19:22)
[2018-05-02] MEDS ORDERED: NON-FORMULARY DRUG (Omeprazole [Omeprazole] 20 MG) PO SCH (21:00)
[2018-05-02] MEDS: CYCLOBENZAPRINE 10 MG TAB PO SCH (22:21)
[2018-05-02] MEDS: MONTELUKAST 10 MG TAB PO SCH (22:21)
[2018-05-02] MEDS: PREGABALIN 50 MG CAP PO SCH (22:22)
[2018-05-02] MEDS: LORATADINE-PSEUDOEPH 5-120 MG 1 EACH TAB.ER.12H PO SCH (22:30)
[2018-05-02 23:08] LABS: Iron Saturation 32.96 (12.00-45.00); Protein, Total 4.8 g/dL (6.2-8.2)
[2018-05-03] MEDS: MORPHINE SULFATE 4 MG/ML SYRINGE IV PRN ×5 (03:25→22:16)
[2018-05-03] MEDS: SODIUM CHLORIDE 0.9% 1,000 ML IV SCH ×2 (04:45→14:44)
[2018-05-03] MEDS: ONDANSETRON 4 MG/2 ML VIAL IVP PRN ×3 (07:42→22:34)
[2018-05-03] MEDS: predniSONE 20 MG TAB PO SCH (07:43)
[2018-05-03] MEDS: FAMOTIDINE 20 MG TAB PO SCH ×2 (07:43→21:41)
[2018-05-03] MEDS: LORATADINE-PSEUDOEPH 5-120 MG 1 EACH TAB.ER.12H PO SCH ×2 (07:43→21:41)
[2018-05-03] MEDS: DICYCLOMINE 20 MG TAB PO SCH ×4 (07:43→21:41)
[2018-05-03] MEDS: ENOXAPARIN 40 MG/0.4 ML SYRINGE SQ SCH (07:44)
[2018-05-03] MEDS: NICOTINE 14MG/24HR PATCH TRANSDERM SCH (07:44)
[2018-05-03] MEDS: IPRATROPIUM-ALBUTEROL 3 ML NEB INHALATION SCH ×4 (07:58→19:15)
[2018-05-03] MEDS ORDERED: IOPAMIDOL-300 CONTRAST 30 ML VIAL (ORAL USE) PO PRN (10:15)
[2018-05-03 10:56] LABS: Ceruloplasmin 24.8 mg/dL (20.0-60.0)
[2018-05-03 11:28] LABS: ANA Pattern Speckled
[2018-05-03] MEDS: ALPRAZolam 0.25 MG TAB PO PRN (13:25)
[2018-05-03] MEDS: BENZOCAINE SPRAY 1 CAN MUCOUS MEM PRN (13:25)
[2018-05-03 13:35] LABS: Liver/Kidney Microsome Antibod 1.2 UNITS (<=20)
[2018-05-03 14:05] LABS: Albumin 2.97 g/dL (3.80-4.90)
[2018-05-03] MEDS: BACITRACIN OINT 1 EACH PACKET TOPICAL SCH ×2 (14:44→21:41)
--- NOTE | 2018-05-03 14:51 | CT ---
EXAMINATION TYPE: CT abdomen pelvis wo con DATE OF EXAM: 05/03/2018 COMPARISON: 04/30/2018 and 04/28/2018 HISTORY: 27-year-old female Abdominal pain CT DLP: 1044.4 mGycm. Automated exposure control for dose reduction was used. TECHNIQUE: Contiguous axial scanning of the abdomen and pelvis without IV contrast. Coronal and sagit ernesto reconstructions performed. FINDINGS: Heart normal size without pericardial effusion. Some strandy atelectasis at the left base without ple ural effusion. Noncontrast appearance of the liver, adrenal glands, right kidney, spleen, and pancreas show no gross normality. Punctate 2 mm nonobstructive left renal calculus. No hydronephrosis on either side. Oral contrast only progressed to the mid small bowel level. No dilated small bowel, free fluid, or free air. No mesenteric or retroperitoneal lymphadenopathy. Normal appendix. Mild stool burden. No pericolonic inflammatory change. Bladder not distended. Right-sided pelvic phlebolith. Uterus surgically absent. Both ovaries are visu alized. No abnormal fluid collection in the pelvis or pelvic lymphadenopathy. Stable small focal area of fat stranding right paramedian anterior abdominal wall just above the leve l of the umbilicus of questionable clinical significance. Some subcutaneous foci of air suggesting harper bcutaneous injections along the left lower quadrant. Dependent edema noted along the posterior midline subcutaneous adipose layer and mild along the flank s. Bones: Mild facet arthropathy lower lumbar spine. No osseous destructive process. IMPRESSION: 1. 2 mm nonobstructive left renal calculus. Some interval development of mild dependent edema in the subcutaneous adipose tissues. 2. Otherwise, stable exam from 04/30/2018 allowing for noncontrast technique. Refer to findings and im pression from that study.
--- NOTE | 2018-05-03 15:35 | P.PN ---
Subjective Progress Note Date: 05/03/18 CHIEF COMPLAINT: Abdominal pain. HISTORY OF PRESENT ILLNESS: Patient continues to complain of severe right lower quadrant abdominal pain. Patient reports she continues her difficulty keeping liquids down. Patient underwent EGD yesterday per GI which revealed mild gastritis of the antrum and body. PHYSICAL EXAM: VITAL SIGNS: Currently stable. GENERAL: Well-developed in no acute distress. HEENT: No sclera icterus. Extraocular movements grossly intact. Moist buccal mucosa. Head is atraumatic, normocephalic. Hears conversational speech. No nasal drainage. NECK: Supple without lymphadenopathy. CHEST: Non-labored respirations and equal bilateral excursions. CARDIOVASCULAR: Regular rate with regular rhythm. Palpable 2+ radial pulses. ABDOMEN: Soft. Nondistended. Tenderness upon palpation of right lower quadrant. MUSCULOSKELETAL: No clubbing, cyanosis or edema. NEUROLOGIC: No focal or lateralizing signs. Cranial nerves II through XII grossly intact. PSYCH: Alert and oriented x 3 SKIN: Well perfused. Good skin turgor. ASSESSMENT: 1. Right lower quadrant abdominal pain, CT reveals normal appearing appendix 2. History of cholecystectomy, 2014 3. Transaminitis 4. Leukocytosis PLAN: Continue diet as tolerated. Will repeat CT abdomen and pelvis with oral contrast Nurse practitioner note has been reviewed by physician. Signing provider agrees with the documented findings, assessment, and plan of care. Objective - Vital Signs Vital signs: Vital Signs Temp 98.6 F 05/03/18 15:00 Pulse 63 05/03/18 15:00 Resp 12 05/03/18 15:00 BP 145/87 05/03/18 15:00 Pulse Ox 95 05/03/18 15:00 Intake & Output 05/02/18 05/03/18 05/03/18 18:59 06:59 18:59 Intake Total 1250 2000 1000 Balance 1250 2000 1000 Intake: IV 150 Intake, IV Titration 1000 2000 1000 Amount Sodium Chloride 0.9% 1, 1000 2000 1000 000 ml @ 125 mls/hr IV . Q8H [facility] Rx#:[id number] Other 100 Other: # Voids 3 3 3 - Labs CBC & Chem 7: 05/02/18 08:46 05/02/18 08:46 Labs: Abnormal Lab Results - Last 24 Hours (Table) 05/02/18 05/02/18 Range/Units 08:46 08:46 Total Protein (PEP) 4.8 L (6.2-8.2) g/dL Albumin (PEP) 2.97 L (3.80-4.90) g/dL Beta Globulins 0.52 L (0.60-1.30) g/dL Gamma Globulins 0.40 L (0.70-1.50) g/dL FERMIN Screen POSITIVE H (NEGATIVE)
[2018-05-03] MEDS: CYCLOBENZAPRINE 10 MG TAB PO SCH (21:41)
[2018-05-03] MEDS: MONTELUKAST 10 MG TAB PO SCH (21:41)
[2018-05-03] MEDS: PREGABALIN 50 MG CAP PO SCH (21:41)
--- NOTE | 2018-05-03 23:50 | PN ---
PROGRESS NOTE DATE OF SERVICE: 05/03/2018. PRESENTING COMPLAINT: Abdominal pain. INTERVAL HISTORY: This patient presents for 5 days of abdominal pain localized to right lower quadrant with nausea and vomiting. Did have a CT scan today, did not show any obvious evidence of appendicitis. Seen by Dr. Arciniega earlier today. May be doing a diagnostic laparoscopy to see if this is to be appendix. REVIEW OF SYSTEMS: Done for constitutional, cardiovascular, GI, pulmonary; relevant findings as above. CURRENT MEDICATIONS: Reviewed, include IV fluids. EXAMINATION: Afebrile, pulse 71, respirations 16, blood pressure 105/77, pulse ox 99% on room. GENERAL APPEARANCE: Sitting up, not in distress. EYES: Pupils equal. Conjunctivae normal. NECK: JVD not raised. Mass not palpable. Respiratory effort normal. LUNGS: Clear. CARDIOVASCULAR: 1st and 2nd sounds normal. No edema. ABDOMEN: Right lower quadrant tenderness. No guarding or rigidity. Soft. PSYCHIATRY: Alert and oriented x3. Mood and affect normal. INVESTIGATIONS: White count 11.1, hemoglobin 12.5, potassium 3.9, AST 44, ALT 167. ASSESSMENT: 1. Right lower quadrant pain, could be viral ileitis. The patient's white count actually has come down. I doubt this is acute appendicitis, less likely, but cannot of course be ruled out. Would have expected it to get much worse in the last 5 days and would not accept the white count actually to come down. 2. Intermittent asthma with acute exacerbation from viral tracheobronchitis. 3. Acute sinusitis. 4. Chronic fibromyalgia. 5. Primary osteoarthritis of the spine. 6. Morbid obesity BMI 43.9. PLAN: Care was discussed with the patient's mother at the bedside. Also discuss with Dr. Arciniega in the morning. He may do diagnosis laparoscopy. GI is also following the case. MMODL / IJN: [id number] /
[2018-05-04] MEDS: ALPRAZolam 0.25 MG TAB PO PRN ×3 (00:33→22:38)
[2018-05-04] MEDS: BENZOCAINE SPRAY 1 CAN MUCOUS MEM PRN ×2 (00:33→20:02)
[2018-05-04] MEDS: SODIUM CHLORIDE 0.9% 1,000 ML IV SCH ×4 (01:27→22:26)
[2018-05-04] MEDS: MORPHINE SULFATE 4 MG/ML SYRINGE IV PRN ×5 (02:55→22:16)
[2018-05-04] MEDS: IPRATROPIUM-ALBUTEROL 3 ML NEB INHALATION SCH ×4 (05:35→19:03)
[2018-05-04] MEDS: ONDANSETRON 4 MG/2 ML VIAL IVP PRN ×2 (07:54→18:46)
[2018-05-04 08:14] LABS: Basophils % (A) 0 %; Eosinophils % (A) 0 %; HCT 34.6 % (34.0-46.0); HGB 11.5 gm/dL (11.4-16.0); Lymphocytes # (A) 3.2 k/uL (1.0-4.8); Lymphocytes % (A) 38 %; MCH 30.3 pg (25.0-35.0); MCHC 33.2 g/dL (31.0-37.0); MCV 91.3 fL (80.0-100.0); Mean Platelet Volume 6.9; Monocytes # (A) 0.4 k/uL (0-1.0); Monocytes % (A) 5 %; Neutrophils # (A) 4.6 k/uL (1.3-7.7); Neutrophils % (A) 54 %; Platelet Count 220 k/uL (150-450); RBC 3.79 m/uL (3.80-5.40); RDW 12.8 % (11.5-15.5); WBC 8.5 k/uL (3.8-10.6)
[2018-05-04 08:37] LABS: Albumin 2.9 g/dL (3.5-5.0); Calcium 8.5 mg/dL (8.4-10.2); Potassium 3.9 mmol/L (3.5-5.1); Total Bilirubin 0.7 mg/dL (0.2-1.3); Total Protein 4.9 g/dL (6.3-8.2)
--- NOTE | 2018-05-04 10:47 | P.PN ---
Subjective Progress Note Date: 05/04/18 CHIEF COMPLAINT: Abdominal pain. HISTORY OF PRESENT ILLNESS: Patient examined at the bedside. Patients mother present. Patient continues to complain of severe right lower quadrant abdominal pain. She is tearful and frustrated. Repeat CT yesterday was unremarkable. Patient requesting to undergo exploratory laparotomy today. Patient understands the risks of surgery. PHYSICAL EXAM: VITAL SIGNS: Currently stable. GENERAL: Well-developed in no acute distress. HEENT: No sclera icterus. Extraocular movements grossly intact. Moist buccal mucosa. Head is atraumatic, normocephalic. Hears conversational speech. No nasal drainage. NECK: Supple without lymphadenopathy. CHEST: Non-labored respirations and equal bilateral excursions. CARDIOVASCULAR: Regular rate with regular rhythm. Palpable 2+ radial pulses. ABDOMEN: Soft. Nondistended. Tenderness upon palpation of right lower quadrant. MUSCULOSKELETAL: No clubbing, cyanosis or edema. NEUROLOGIC: No focal or lateralizing signs. Cranial nerves II through XII grossly intact. PSYCH: Alert and oriented x 3 SKIN: Well perfused. Good skin turgor. ASSESSMENT: 1. Right lower quadrant abdominal pain, CT reveals normal appearing appendix 2. History of cholecystectomy, 2014 3. Transaminitis 4. Leukocytosis PLAN: NPO. Patient will undergo exploratory laparotomy today with possible appendectomy by Dr. Arciniega. Nurse practitioner note has been reviewed by physician. Signing provider agrees with the documented findings, assessment, and plan of care. Objective - Vital Signs Vital signs: Vital Signs Temp 97.7 F 05/04/18 08:00 Pulse 78 05/04/18 08:00 Resp 16 05/04/18 08:00 BP 131/87 05/04/18 08:00 Pulse Ox 96 05/04/18 08:00 Intake & Output 05/03/18 05/04/18 05/04/18 18:59 06:59 18:59 Intake Total 1000 Balance 1000 Intake: Intake, IV Titration 1000 Amount Sodium Chloride 0.9% 1, 1000 000 ml @ 125 mls/hr IV . Q8H [facility] Rx#:[id number] Other: Voiding Method Toilet # Voids 3 1 - Labs CBC & Chem 7: 05/04/18 07:47 05/04/18 07:47 Labs: Abnormal Lab Results - Last 24 Hours (Table) 05/02/18 05/04/18 05/04/18 Range/Units 08:46 07:47 07:47 RBC 3.79 L (3.80-5.40) m/uL Chloride 111 H (98-107) mmol/L ALT 94 H (9-52) U/L Total Protein 4.9 L (6.3-8.2) g/dL Albumin 2.9 L (3.5-5.0) g/dL Albumin (PEP) 2.97 L (3.80-4.90) g/dL Beta Globulins 0.52 L (0.60-1.30) g/dL Gamma Globulins 0.40 L (0.70-1.50) g/dL
[2018-05-04] MEDS: FAMOTIDINE 20 MG/2 ML VIAL IV SCH ×2 (10:49→20:09)
[2018-05-04] MEDS ORDERED: LORazepam 2 MG/ML INJ IV PRN (11:22)
[2018-05-04] MEDS: ENOXAPARIN 40 MG/0.4 ML SYRINGE SQ SCH (11:23)
[2018-05-04] MEDS: DICYCLOMINE 20 MG TAB PO SCH ×3 (11:24→22:33)
[2018-05-04] MEDS: LORATADINE-PSEUDOEPH 5-120 MG 1 EACH TAB.ER.12H PO SCH ×2 (11:24→22:38)
--- NOTE | 2018-05-04 11:38 | P.PN ---
Subjective Progress Note Date: 05/04/18 Principal diagnosis: abdominal pain and transaminitis 27-year-old female scheduled for surgery today Dr. Arciniega evaluation abdominal pain. Status post unremarkable EGD 2 days ago. She has a history of childhood elevated liver enzymes and positive FERMIN. Presently reporting right- sided abdominal pain. White count 8.5. Hemoglobin 11.5. Total bilirubin 0.7. AST 25. ALT 94. AP 81. FERMIN positive titer 1:160 speckled. Ceruloplasmin 24. Also 04/17/2018. Iron indices within normal limits. AMA 2.7. ASMA 4. Hepatitis screen nonreactive. Objective - Vital Signs Vital signs: Vital Signs Temp 97.7 F 05/04/18 08:00 Pulse 78 05/04/18 08:00 Resp 16 05/04/18 08:00 BP 131/87 05/04/18 08:00 Pulse Ox 96 05/04/18 08:00 Intake & Output 05/03/18 05/04/18 05/04/18 18:59 06:59 18:59 Intake Total 1000 Balance 1000 Intake: Intake, IV Titration 1000 Amount Sodium Chloride 0.9% 1, 1000 000 ml @ 125 mls/hr IV . Q8H [facility] Rx#:[id number] Other: Voiding Method Toilet # Voids 3 1 - Exam General appearance: The patient is alert, oriented, in no acute distress. HET: Head is normocephalic and atraumatic. Pupils are equal and reactive. Oropharynx is clear without lesions. Neck: Supple without lymphadenopathy. Trachea midline. Heart: S1 S2. Regular rate and rhythm. Lungs: No crackles or wheezes are heard. Abdomen: Soft, tenderness to the right mid quadrant and right lower quadrant, nondistended with bowel sounds. No peritoneal signs. No palpable organomegaly or masses. Extremities: Normal skin color and turgor. No cyanosis, rash, ulceration, clubbing, or edema. Radial and pedal pulses are 2/4 bilaterally. Neurological: No focal deficits. Strength and sensation are grossly intact. - Labs CBC & Chem 7: 05/04/18 07:47 05/04/18 07:47 Labs: Abnormal Lab Results - Last 24 Hours (Table) 05/02/18 05/04/18 05/04/18 Range/Units 08:46 07:47 07:47 RBC 3.79 L (3.80-5.40) m/uL Chloride 111 H (98-107) mmol/L ALT 94 H (9-52) U/L Total Protein 4.9 L (6.3-8.2) g/dL Albumin 2.9 L (3.5-5.0) g/dL Albumin (PEP) 2.97 L (3.80-4.90) g/dL Beta Globulins 0.52 L (0.60-1.30) g/dL Gamma Globulins 0.40 L (0.70-1.50) g/dL Assessment and Plan (1) Abdominal pain Narrative/Plan: 27-year-old female with a history of positive FERMIN, elevated liver enzymes as a child per history, obesity, cholecystectomy unsure if cholelithiasis was present admitted with 5 day history of intractable right-sided abdominal pain nausea vomiting nonbloody diarrhea; diarrhea since resolved. Pain is persistent toward mid epigastrium as well as the right side of the abdomen. CT 2 abdomen and pelvis completed no evidence of appendicitis general surgery following. Patient takes NSAIDs 3 times daily for chronic pain underlying peptic ulcer disease NSAID related esophagitis gastritis duodenitis cannot be excluded. FERMIN positive speckled 1:160 ratio. Current Visit: No Status: Acute Code(s): R10.9 - UNSPECIFIED ABDOMINAL PAIN SNOMED Code(s): 13045985 (2) Transaminitis Narrative/Plan: History of childhood elevation of liver enzymes etiology unclear with persistent mild elevation of transaminitis for at least a year duration with normal bilirubin and alkaline phosphatase underlying nonalcoholic fatty liver disease underlying chronic liver disease autoimmune disease cannot be excluded. Other differentials to consider an cannot be excluded at this time is underlying choledocholithiasis possible nonalcoholic fatty liver disease steatohepatitis. Current Visit: Yes Status: Acute Code(s): R74.0 - NONSPEC ELEV OF LEVELS OF TRANSAMNS & LACTIC ACID DEHYDRGNSE SNOMED Code(s): 424503602 (3) Leukocytosis Current Visit: Yes Status: Acute Code(s): D72.829 - ELEVATED WHITE BLOOD CELL COUNT, UNSPECIFIED SNOMED Code(s): 251321591 (4) FERMIN positive Current Visit: Yes Status: Acute Code(s): R76.8 - OTHER SPECIFIED ABNORMAL IMMUNOLOGICAL FINDINGS IN SERUM SNOMED Code(s): 334193251 Plan: 1. Patient is scheduled for surgery today. [facility]olecystectomy records from [facility] was requested placed in chart for review rule out history of cholelithiasis. FERMIN positive this was discussed at bedside with family and patient. LFTs are improved today. Patient was advised to follow up after discharge for reevaluation and discussion of possible outpatient MRCP possible liver biopsy if indicated. Assessment and plan a care discussed with Dr. Kaye
[2018-05-04] MEDS: NICOTINE 14MG/24HR PATCH TRANSDERM SCH (12:17)
[2018-05-04 13:27] VITALS: BMI 43.9
[2018-05-04] MEDS ORDERED: MIDAZOLAM 2 MG/2 ML VIAL IVP ONE (14:30)
[2018-05-04] MEDS ORDERED: IV FLUID CONTINUATION 1,000 ML IV ONE (14:37)
--- NOTE | 2018-05-04 14:58 | P.PN ---
Progress Note - Text Progress Note Date: 05/04/18 Patient's had persistent right lower quadrant pain. On exam her lesser stable. Her abdomen soft. Patient's had persistent right lower quadrant pain with history of leukocytosis. Patient will undergo laparoscopic appendectomy today. I discussed the mother that she still may have right lower quadrant pain after surgery.
[2018-05-04] MEDS ORDERED: HEPARIN SODIUM,PORCINE 5,000 UNIT/ML 1 ML VIAL SQ ONE (15:11)
[2018-05-04] MEDS ORDERED: ceFAZolin IN SWFI 2 GM/20 ML SYRINGE IVP STA (15:12)
[2018-05-04] MEDS ORDERED: ONDANSETRON 4 MG/2 ML VIAL IVP ONE (15:27)
[2018-05-04] MEDS ORDERED: DEXAMETHASONE SOD PHOS (MDV) 100 MG/10 ML VIAL IVP ONE (15:28)
[2018-05-04] MEDS ORDERED: BUPIVACAIN-EPI 0.25%-1:200,000 30 ML VIAL SQ ONE ×2 (15:36→15:57)
[2018-05-04] MEDS ORDERED: PROPOFOL 10 MG/ML 20 ML VIAL IV ONE (15:37)
[2018-05-04] MEDS ORDERED: fentaNYL (PF) 50 MCG/ML 2 ML AMP ONE (15:37)
[2018-05-04] MEDS ORDERED: ROCURONIUM BROMIDE 10 MG/ML 10 ML VIAL IV ONE (15:37)
[2018-05-04] MEDS ORDERED: NEOSTIGMINE 1 MG/ML 10 ML VIAL ONE (15:37)
[2018-05-04] MEDS ORDERED: LIDOCAINE 1% INJ 10MG/ML (20 ML MDV) ONE (15:37)
[2018-05-04] MEDS ORDERED: MIDAZOLAM 2 MG/2 ML VIAL ONE (15:37)
[2018-05-04] MEDS ORDERED: GLYCOPYRROLATE 0.2 MG/ML 2 ML VIAL ONE (15:37)
[2018-05-04] MEDS ORDERED: SUCCINYLCHOLINE CHLORIDE 100 MG/5 ML SYR IV ONE (15:37)
[2018-05-04] MEDS ORDERED: HYDROmorphone (PF) 1 MG/ML ONE (15:37)
[2018-05-04] MEDS ORDERED: SODIUM CHLORIDE 0.9% 50 ML with ceFAZolin 2,000 MG IV ONE ×2 (15:50)
--- NOTE | 2018-05-04 16:11 | P.OP ---
Date of Procedure: 05/04/18 Preoperative Diagnosis: Right lower quadrant pain Postoperative Diagnosis: Deferred pathology Procedure(s) Performed: Laparoscopic appendectomy Anesthesia: KATIE Surgeon: Blue Arciniega Estimated Blood Loss (ml): 5 Pathology: other (Appendix) Condition: stable Disposition: PACU Description of Procedure: HarThe patient's placed on the operating table in the supine position. The patient received general anesthesia. The abdomen was prepped and draped in the usual sterile fashion. The skin was anesthetized 1% local Xylocaine at the trocar sites. Using an 11 blade the skin was incised at the umbilicus. The umbilicus was grasped with a Novato clamp and then a Veress needle was placed into the peritoneal cavity. Position of the Veress needle was confirmed with positive drop test. After adequate insufflation a 5 mm trocar was placed into the peritoneal cavity. The abdomen was further insufflated. And then the laparoscope was placed in the peritoneal cavity. Next a 5 mm trocar was placed in the midline suprapubic position. And then a 10 mm trocar was placed in the midline epigastric position. The patient was rotated with the right side up and in Trendelenburg. The appendix was visualized. The appendix appeared to be inflamed. The appendix was grasped and then using the Harmonic scissors the mesoappendix was divided. A PDS Endoloop was then placed around the base of the appendix. And then the appendix was divided using Harmonic scissors. The appendix was placed into an Endo Catch and brought out through the 10 mm trocar site. The abdomen was irrigated. There is no bleeding seen. The trochars withdrawn. The skin was closed interrupted 3-0 Monocryl suture. Dermabond dressing was applied. Patient was sent to recovery room in stable condition.
[2018-05-04] MEDS: BACITRACIN OINT 1 EACH PACKET TOPICAL SCH ×2 (17:26→22:29)
--- NOTE | 2018-05-04 17:29 | PN ---
PROGRESS NOTE DATE OF SERVICE: 05/04/2018 PRESENTING COMPLAINT: Abdominal pain. INTERVAL HISTORY: This patient presented with over 5 days of abdominal pain localized to the right lower quadrant with nausea and vomiting. Clinical impression was that of local ileitis. Appendicitis was a possibility, though that would be expected to be much worse over the course of the day, but it cannot be ruled out. Dr. Arciniega is planning a laparoscopic look this afternoon. GI workup is in place. No nausea or vomiting. Patient is able to get around. Family is present. REVIEW OF SYSTEMS: Done for constitutional, cardiovascular, GI, pulmonary; relevant findings as above. CURRENT MEDICATIONS: Reviewed. PHYSICAL EXAMINATION: Temperature 98.2, pulse 99, respiration 16, blood pressure 122/78, pulse ox 98% on room air. GENERAL APPEARANCE: Sitting up, not in distress. EYES: Pupils equal. Conjunctivae normal. NECK: JVD not raised. Mass not palpable. RESPIRATORY: Effort normal. LUNGS: Improved air entry. CARDIOVASCULAR: First and second sounds normal. No edema. ABDOMEN: Right lower quadrant tenderness. No guarding or rigidity. Soft. PSYCHIATRY: Alert and oriented x3. Mood and affect normal. INVESTIGATIONS: White count 8.5, hemoglobin 11.5, potassium 3.9, AST 25, ALT 94, albumin 2.9. ASSESSMENT: 1. Acute right lower quadrant pain, probably viral ileitis. Patient's white count has come down on its own without antibiotics. Dr. Arciniega is taking the patient to OR for laparoscopic that could be appendicitis. 2. Acute hepatitis with liver functions coming down. Could be again from a virus insult. Will check patient's CMV and José Miguel-Dwyer virus IgM antibody. 3. Acute sinusitis. 4. Chronic fibromyalgia. 5. Intermittent asthma with acute exacerbation from viral tracheobronchitis, with improvement. 6. Primary osteoarthritis of the spine. 7. Morbid obesity. Body mass index of 43.9. PLAN: Continue current medication and treatment plan. Send off for José Miguel-Dwyer virus and CMV IgM. Other medication and treatment plan is to continue. Patient is going down for surgery this afternoon. Decrease the dose of prednisone. MMODL / IJN: [id number] /
[2018-05-04] MEDS: predniSONE 20 MG TAB PO SCH (17:50)
[2018-05-04 19:16] VITALS: RESP 16
[2018-05-04] MEDS: CYCLOBENZAPRINE 10 MG TAB PO SCH (20:08)
[2018-05-04] MEDS: HYDROcodone/APAP 5-325MG 1 EACH TAB PO PRN (20:12)
[2018-05-04] MEDS: MONTELUKAST 10 MG TAB PO SCH (22:27)
[2018-05-04] MEDS: PREGABALIN 50 MG CAP PO SCH (22:28)
[2018-05-05 04:06] LABS: EBV-VCA (IgG) >8.0 AI
[2018-05-05] MEDS: MORPHINE SULFATE 4 MG/ML SYRINGE IV PRN ×2 (05:22→11:54)
[2018-05-05] MEDS: SODIUM CHLORIDE 0.9% 1,000 ML IV SCH ×2 (05:26→17:52)
[2018-05-05] MEDS: ONDANSETRON 4 MG/2 ML VIAL IVP PRN ×2 (06:20→13:16)
[2018-05-05] MEDS: ALPRAZolam 0.25 MG TAB PO PRN (06:27)
[2018-05-05] MEDS: IPRATROPIUM-ALBUTEROL 3 ML NEB INHALATION SCH ×3 (07:42→15:24)
[2018-05-05] MEDS ORDERED: predniSONE 10 MG TAB PO SCH (09:00)
[2018-05-05] MEDS: NICOTINE 14MG/24HR PATCH TRANSDERM SCH (09:19)
[2018-05-05] MEDS: FAMOTIDINE 20 MG/2 ML VIAL IV SCH (09:19)
[2018-05-05] MEDS: ENOXAPARIN 40 MG/0.4 ML SYRINGE SQ SCH (09:19)
[2018-05-05] MEDS: HYDROcodone/APAP 5-325MG 1 EACH TAB PO PRN ×3 (09:20→17:27)
--- NOTE | 2018-05-05 10:00 | P.PN ---
Subjective Progress Note Date: 05/05/18 Principal diagnosis: Laparoscopic appendectomy Patient states the right-sided pain she was having preoperatively is gone. She is complaining of incisional pain. Tolerating diet. No fevers. Objective - Vital Signs Vital signs: Vital Signs Temp 98.3 F 05/04/18 19:15 Pulse 64 05/04/18 19:15 Resp 16 05/04/18 19:15 BP 126/84 05/04/18 19:15 Pulse Ox 97 05/04/18 19:15 Intake & Output 05/04/18 05/05/18 05/05/18 18:59 06:59 18:59 Intake Total 2000 1000 Output Total 5 Balance 1994 1000 Weight 108.862 kg Intake: IV 1000 Intake, IV Titration 1000 1000 Amount Sodium Chloride 0.9% 1, 1000 1000 000 ml @ 125 mls/hr IV . Q8H [facility] Rx#:[id number] Output: Estimated Blood Loss 5 Other: Voiding Method Toilet # Voids 3 1 - Exam Abdomen: Soft, nondistended, incisions clean and dry, mild incisional tenderness - Labs CBC & Chem 7: 05/04/18 07:47 05/04/18 07:47 Labs: Abnormal Lab Results - Last 24 Hours (Table) 05/01/18 Range/Units 15:50 EBV Capsid Ag IgG Intrp POSITIVE H (NEGATIVE) EBV Nuc Ag IgG Interp POSITIVE H (NEGATIVE) Assessment and Plan (1) Abdominal pain Narrative/Plan: Patient states her right-sided pain is resolved after surgery. Complaining of incisional pain. Asking to stay one more evening. Resume diet. Switch to oral pain meds. Current Visit: No Status: Acute Code(s): R10.9 - UNSPECIFIED ABDOMINAL PAIN SNOMED Code(s): 74210400
--- NOTE | 2018-05-05 11:09 | PN ---
PROGRESS NOTE DATE OF DICTATION: 05/05/2018 Patient is a 27-year-old white female admitted to the hospital with acute onset of right lower quadrant abdominal pain. She underwent laparoscopic appendectomy by Dr. Arciniega yesterday. While in the hospital she was noted to have elevated LFTs and hence we are consulted in regards to this issues. The patient says that she has been noted to have elevated liver enzymes for several years; however, in the last one year they have been persistently elevated. No obvious etiology was identified in the past. She was told she has FERMIN that was positive. She is doing well and this morning; has some mild discomfort in the right lower quadrant area. PHYSICAL EXAMINATION: She appears comfortable, no apparent distress. Vital signs are stable. Blood pressure is 120/70, pulse rate 79, temperature 98.3. HEENT EXAMINATION: Unremarkable. Conjunctivae pink. Sclerae anicteric. Oral cavity no lesions. NECK: No JVD or lymph node enlargement. Chest was clear to auscultation. HEART: Regular rate and rhythm. ABDOMEN: Obese. Mild tenderness in the right lower quadrant area. EXTREMITIES: No pedal edema. SKIN: No rashes. NEUROLOGIC: Alert and oriented x3. No focal deficits. LABS: Labs from today not available. Labs from yesterday showed AST normalized at 25 and ALT of 94. Two days earlier, AST was 45 and ALT was 213. CMV IgM antibody is negative. EBV IgM antibody is negative. FERMIN is positive. The rest of the labs are still pending. IMPRESSION: 1. Right lower quadrant abdominal pain/acute appendicitis, status post laparoscopic appendectomy yesterday by Dr. Arciniega; patient doing well. 2. Elevated serum transaminases, which appears to be chronic in nature for several years; possibly fatty liver disease, but other etiologies cannot be excluded. Workup in progress. RECOMMENDATIONS: Patient was advised to follow up in the office in 2 weeks following discharge from the hospital, at which time we will investigate further and consider liver biopsy if she continues to have persistent elevation of serum transaminases. The plan was discussed with her and her family. Thank you for this consultation. MMODL / SARKISN: [id number] /
[2018-05-05] MEDS: BENZOCAINE SPRAY 1 CAN MUCOUS MEM PRN (11:54)
[2018-05-05] MEDS: LORATADINE-PSEUDOEPH 5-120 MG 1 EACH TAB.ER.12H PO SCH (13:15)
[2018-05-05] MEDS: DICYCLOMINE 20 MG TAB PO SCH ×3 (13:15→17:52)
[2018-05-05 15:49] VITALS: BP 134/90; PULSE 60; TEMP 98.2
[2018-05-05] MEDS: BACITRACIN OINT 1 EACH PACKET TOPICAL SCH (17:51)
--- NOTE | 2018-05-07 01:25 | DS ---
DISCHARGE SUMMARY DATE OF ADMISSION: 05/01/2018 DATE OF DISCHARGE: 05/05/2018 FINAL DIAGNOSES: 1. Acute appendicitis with laparoscopic appendectomy. 2. Headaches. 3. Acute hepatitis, probably viral, type unknown. 4. Acute sinusitis, probably viral. 5. Chronic fibromyalgia. 6. Intermittent asthma with acute exacerbation from viral acute bronchitis. 7. Morbid obesity BMI 43.9. CONSULTATIONS: Dr. Arciniega from General surgery, Dr. Kaye from Gastroenterology. HOSPITAL COURSE: This patient presented with 5 days of right lower quadrant pain following upper respiratory tract infection. Patient is also a smoker, found to have asthma exacerbation that she has had as a child. The patient did have a CT scan of the abdomen and pelvis that showed some left renal calculi 2 mm. The patient also had an EGD by Dr. Kaye and only showed some mild gastritis. The patient is seen by Dr. Arciniega who thought this could be an appendicitis and an appendectomy was carried out. It was also in the differential of patient having terminal ileitis from virus. PHYSICAL EXAMINATION: Temperature 98.2, pulse 60, respiratory rate 16, blood pressure 130/90, pulse ox 100 percent on room air. ABDOMEN: Soft, minimal tenderness. No guarding or rigidity. INVESTIGATIONS: White count 8.5, it was down from 23.7 without antibiotics. LFTs of AST 46 and ALT 213 on presentation, down to 25 and 94. The patient's [place] virus came back positive which was IgG. IgM was negative. The patient had been advised against smoking repeatedly. The patient was cleared by consultants to go home. HOME GO MEDICATIONS: 1. Xanax 0.25 p.o. b.i.d. p.r.n. 2. Motrin 800 mg q.8h p.r.n. 3. Singulair 10 mg p.o. q.h.s. 4. Omeprazole 20 mg q.h.s. 5. Bentyl 20 mg p.o. q.i.d. 6. Zofran 4 mg q.8h p.r.n. 7. Flexeril 10 mg p.o. q.h.s. 8. [place] 5 one tablet p.o. t.i.d. p.r.n. 9. Lyrica 50 mg q.h.s. 10.Zantac 150 mg p.o. b.i.d. 11.Colace 100 mg b.i.d. 12.[place] 7.5 one tab q.4h p.r.n. per surgery. 13.Claritin-D 1 tablet q.12; 10 tablets. 14.Nicotine 14 mg patch. FOLLOWUP: Follow up with Dr. Aram Muhammad in [facility] in 3 days, Dr. Jeremie Kaye on 05/28/2018, Dr. Arciniega in 1 week. Diet: Soft bland. Copy to Dr. Aram Muhammad, [facility]. MMODL / IJN: [id number] /
== END 2018-05-05 17:57 | disposition home or self-care (01) | DRG 342 ==
LOC: EC 14:42 → 4SSUR 18:25
PROVIDERS: ADMIT Hospitalist; ATTEND Hospitalist
PROC: 0DB98ZX Excision of Duodenum, Via Natural or Artificial Opening Endoscopic, Diagnostic (ICD-10-PCS; principal; 2018-05-02 10:55)
PROC: 0DB78ZX Excision of Stomach, Pylorus, Via Natural or Artificial Opening Endoscopic, Diagnostic (ICD-10-PCS; principal; 2018-05-02 10:55)
PROC: 0DTJ4ZZ Resection of Appendix, Percutaneous Endoscopic Approach (ICD-10-PCS; 2018-05-04)
DX: K35.80 Unspecified acute appendicitis (principal); B17.9 Acute viral hepatitis, unspecified; J45.21 Mild intermittent asthma with (acute) exacerbation; Z68.41 Body mass index [BMI] 40.0-44.9, adult; E66.01 Morbid (severe) obesity due to excess calories; F17.210 Nicotine dependence, cigarettes, uncomplicated; G89.29 Other chronic pain; J01.90 Acute sinusitis, unspecified; J20.9 Acute bronchitis, unspecified; K21.0 Gastro-esophageal reflux disease with esophagitis; K27.9 Peptic ulcer, site unspecified, unspecified as acute or chronic, without hemorrhage or perforation; K29.80 Duodenitis without bleeding; K29.60 Other gastritis without bleeding; K44.9 Diaphragmatic hernia without obstruction or gangrene; M19.91 Primary osteoarthritis, unspecified site; M47.9 Spondylosis, unspecified; M79.7 Fibromyalgia; N20.0 Calculus of kidney; R76.8 Other specified abnormal immunological findings in serum; Z79.899 Other long term (current) drug therapy; Z80.8 Family history of malignant neoplasm of other organs or systems; Z87.09 Personal history of other diseases of the respiratory system; Z90.710 Acquired absence of both cervix and uterus; Z90.49 Acquired absence of other specified parts of digestive tract; Z79.1 Long term (current) use of non-steroidal anti-inflammatories (NSAID); Z79.891 Long term (current) use of opiate analgesic; Z88.2 Allergy status to sulfonamides
CPT/HCPCS: 36415; 43239; 74176; 76705; 80053; 82103; 82150; 82390; 82728; 83516; 83540; 83550; 83605; 83690; 84165; 85025; 86038; 86039; 86376; 86645; 86663; 86664; 86665; 88305; 94640; 96374; 96375; 96376; 99285

== ENCOUNTER → 2018-05-28 | Outpatient (CLI) | payer OTHER ==
[2018-05-29 02:26] LABS: Protein, Total 6.2 g/dL (6.2-8.2)
[2018-05-29 02:43] LABS: Albumin 4.3 g/dL (3.80-4.90); Albumin/Globulin Ratio 2.69 (1.60-3.17); Anion Gap 9.6 mmol/L (4.00-12.00); Calcium 9.1 mg/dL (8.7-10.3); Carbon Dioxide 23.4 mmol/L (21.6-31.8); Globulin 1.6 g/dL (1.6-3.3); Total Bilirubin 0.3 mg/dL (0.2-1.2); Total Protein 5.9 g/dL (6.2-8.2)
[2018-05-29 12:07] LABS: Ceruloplasmin 31.8 mg/dL (20.0-60.0)
[2018-05-29 13:32] LABS: Albumin 3.84 g/dL (3.80-4.90); Gamma Globulin 0.59 g/dL (0.70-1.50)
[2018-05-29 14:51] LABS: ANA Pattern Speckled
== END | disposition home or self-care (01) ==
LOC: LABWHC1 17:29
PROVIDERS: ATTEND Internal Medicine Gastroenterology
DX: R79.89 Other specified abnormal findings of blood chemistry (principal)
CPT/HCPCS: 36415; 80053; 82103; 82390; 82728; 83516; 83540; 83550; 84165; 86038; 86039

== ENCOUNTER → 2018-08-03 | Outpatient (CLI) | payer OTHER ==
--- NOTE | 2018-08-03 15:35 | MR ---
EXAMINATION TYPE: MR shoulder LT wo con DATE OF EXAM: 08/03/2018 COMPARISON: None HISTORY: Left shoulder pain TECHNIQUE: Multiplanar, multisequence imaging of the left shoulder is performed without contrast. FINDINGS: Rotator Cuff: There is increased intrasubstance signal seen near the insertion of the anterior fibers of the supraspinatus tendon compatible tendinosis. No through thickness tear is seen. Acromioclavicular Joint: Normal appearance Glenohumeral Joint: Normal appearance Labrum: The labrum appears grossly intact given limitation of non-arthrogram study. Biceps Tendon: The long head of biceps is in normal location within bicipital groove. Bone marrow signal: No focal abnormal marrow signal is appreciated. IMPRESSION: Tendinosis insertion anterior fibers supraspinatus tendon with no definite through thickness tear or retraction. Partial 5 mm intrasubstance tear not excluded.
== END | disposition home or self-care (01) ==
LOC: RADMRIMAIN 08:03
PROVIDERS: ATTEND Nurse Practitioner Family
DX: M25.512 Pain in left shoulder (principal)

== ENCOUNTER → 2018-08-08 | Outpatient (CLI) | payer OTHER ==
--- NOTE | 2018-08-08 08:58 | USB ---
Reason for exam: clinical finding. History: Family history of breast cancer in maternal aunt at age 50. Indicated problem(s): pain in both breasts. Physical Findings: Nurse Summary: Patient complains of bilateral breast pain intermittent x 1 year, nodular movable (nurse mj). US Breast BILAT Right complete breast ultrasound includes all four quadrants, the retroareolar region and axilla. Finding demonstrates no cystic or solid lesion seen. Left complete breast ultrasound includes all four quadrants, the retroareolar region and axilla. Finding demonstrates no cystic or solid lesion seen. No suspicious sonographic finding. These results were verbally communicated with the patient and result sheet given to the patient on 08/08/18. ASSESSMENT: Negative, BI-RAD 1 RECOMMENDATION: Routine screening mammogram of both breasts at age 39. (or sooner if clinically indicated) Manage patient on a clinical basis.
== END | disposition home or self-care (01) ==
LOC: RADUSWWP 07:04
PROVIDERS: ATTEND Family Medicine
DX: N64.4 Mastodynia (principal)

== ENCOUNTER → 2019-11-07 | Outpatient (CLI) | payer OTHER ==
--- NOTE | 2019-11-07 11:33 | USB ---
Reason for exam: clinical finding. History: Family history of breast cancer in maternal aunt at age 50. Physical Findings: Nurse Summary: bilateral breast pain off and on x 2 years (nurse rj). US Breast BILAT Right complete breast ultrasound includes all four quadrants, the retroareolar region and axilla. Finding demonstrates no cystic or solid lesion seen. Left complete breast ultrasound includes all four quadrants, the retroareolar region and axilla. Finding demonstrates no cystic or solid lesion seen. These results were verbally communicated with the patient and result sheet given to the patient on 11/07/19. ASSESSMENT: Negative, BI-RAD 1 RECOMMENDATION: Clinical management of both breasts. Manage patient on a clinical basis.
== END | disposition home or self-care (01) ==
LOC: RADUSWWP 10:52
PROVIDERS: ATTEND Family Medicine
DX: N63.10 Unspecified lump in the right breast, unspecified quadrant (principal); N63.20 Unspecified lump in the left breast, unspecified quadrant

== ENCOUNTER 2024-03-28 11:18 | Day surgery (SDC) | payer OTHER ==
[2024-03-27 09:05] VITALS: BMI 37.1
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
[~2024-03-28 11:18] MED LIST changes: +ONDANSETRON 4 MG/2 ML VIAL IVP PRN; +Pre Op ABX Message 1 EACH MISC MISCELLANE ONE; +SCOPOLAMINE 1 MG/72 HR PATCH TRANSDERM STA
[2024-03-28] MEDS: DEXAMETHASONE SOD PHOSPHATE 4 MG/ML 1 ML VIAL IV ONE (12:19)
[2024-03-28] MEDS: ONDANSETRON 4 MG/2 ML VIAL IVP ONE (12:19)
[2024-03-28] MEDS: MELOXICAM 7.5 MG TAB PO PRN (12:20)
[2024-03-28] MEDS: ACETAMINOPHEN TAB 500 MG TAB PO PRN (12:20)
[2024-03-28 12:24] LABS: Basophils # (A) 0.1 k/uL (0-0.2); Basophils % (A) 1 %; Eosinophils # (A) 0.4 k/uL (0-0.7); Eosinophils % (A) 3 %; HCT 41.9 % (34.0-46.0); Lymphocytes # (A) 3.5 k/uL (1.0-4.8); Lymphocytes % (A) 28 %; MCH 29.2 pg (25.0-35.0); MCHC 33.5 g/dL (31.0-37.0); MCV 87.2 fL (80.0-100.0); Mean Platelet Volume 7.8; Monocytes # (A) 0.6 k/uL (0-1.0); Monocytes % (A) 5 %; Neutrophils % (A) 63 %; Platelet Count 315 k/uL (150-450); RBC 4.81 m/uL (3.80-5.40); RDW 12.9 % (11.5-15.5); WBC 12.8 k/uL (3.8-10.6)
[2024-03-28] MEDS: MIDAZOLAM 2 MG/2 ML VIAL IV ONE (12:24)
[2024-03-28 12:41] LABS: ALT 60 U/L (4-34); African American GFR (CKD) >90 (>60 ml/min/1.73 sqM); Albumin 4.4 g/dL (3.5-5.0); Anion Gap 5 mmol/L; Blood Urea Nitrogen 7 mg/dL (7-17); Calcium 9.3 mg/dL (8.4-10.2); Carbon Dioxide 21 mmol/L (22-30); Chloride 112 mmol/L (98-107); Glucose 91 mg/dL (74-99); Non-African American GFR(CKD) >90 (>60 ml/min/1.73 sqM); Sodium 138 mmol/L (137-145); Total Bilirubin 1.1 mg/dL (0.2-1.3); Total Protein 6.8 g/dL (6.3-8.2)
[2024-03-28] MEDS: HEPARIN SODIUM,PORCINE 5,000 UNIT/ML 1 ML VIAL SQ PRN (12:45)
[2024-03-28 12:49] LABS: AST 46 U/L (14-36); Alkaline Phosphatase 121 U/L (38-126); Potassium 3.8 mmol/L (3.5-5.1)
--- NOTE | 2024-03-28 13:05 | P.ANPRN ---
Procedure Note - Anesthesia - Nerve Block Performed Bilateral Erector Spinae Single Time Out Performed: Yes (1232) Date of Procedure: 03/28/24 Procedure Start Time: 12:35 Procedure Stop Time: 12:37 Location of Patient: PreOp Indication: Acute Post-Operative Pain, Requested by Surgeon Sedation Type: Sedate with meaningful contact maintained Preparation: Sterile Prep, Sterile Dressing Position: Prone Catheter: None Needle Types: Pajunk Needle Gauge: 21 Ultrasound used to visualize needle placement: Yes Ultrasound used to observe medication spread: Yes Injectate: 0.5% Ropivacaine (see comment for volume) (20 mL of block solution on each side, which containing 10 mL of 0.5% ropivacaine mixed with 10 mL of preservative-free normal saline) Narrative: 21-gauge 100 mm needle with 1 attempt. Blood Aspirated: No Pain Paresthesia on Injection Noted: No Resistance on Injection: Normal Image Stored and Saved: Yes Events: Uneventful and Well Tolerated
[2024-03-28] MEDS: IV FLUID CONTINUATION 1,000 ML IV ONE (13:24)
[2024-03-28] MEDS ORDERED: ROCURONIUM 10 MG/ML (5 ML VIAL) IV ONE (13:32)
[2024-03-28] MEDS ORDERED: ceFAZolin 1 GM/50 ML BAG (PMX) ONE (13:32)
[2024-03-28] MEDS ORDERED: SUCCINYLCHOLINE CHLORIDE 200 MG/10 ML VIAL IV ONE (13:32)
[2024-03-28] MEDS ORDERED: PROPOFOL 10 MG/ML 20 ML VIAL IV ONE (13:32)
[2024-03-28] MEDS ORDERED: ePHEDrine 50 MG/ML 1 ML VIAL ONE (13:32)
[2024-03-28] MEDS ORDERED: WATER FOR INJECTION, STERILE 10 ML VIAL IV ONE (13:32)
[2024-03-28] MEDS ORDERED: fentaNYL (PF) 50 MCG/ML 2 ML AMP ONE (13:32)
[2024-03-28] MEDS ORDERED: SUGAMMADEX SODIUM 100 MG/ML SYR IV ONE (13:32)
[2024-03-28] MEDS ORDERED: ROPIVACAINE 5 MG/ML 30 ML VIAL ONE (13:32)
[2024-03-28] MEDS ORDERED: MIDAZOLAM 2 MG/2 ML VIAL ONE (13:32)
[2024-03-28] MEDS ORDERED: SODIUM CHLORIDE 0.9% (PF) 10 ML VIAL ONE (13:32)
[2024-03-28] MEDS ORDERED: LIDOCAINE 1% INJ 10MG/ML (20 ML MDV) ONE (13:32)
[2024-03-28] MEDS: LIDOCAINE 1%-EPI 1:100,000 20 ML VIAL SQ ONE ×2 (14:08→14:11)
[2024-03-28 14:55] VITALS: TEMP 97.1
[2024-03-28] MEDS: HYDROmorphone 0.5 MG/0.5 ML SYRINGE IVP PRN (15:07)
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
[2024-03-28 15:38] VITALS: RESP 16
[2024-03-28 15:58] VITALS: BP 147/80; PULSE 105
== END 2024-03-28 16:06 | disposition home or self-care (01) ==
LOC: OR 11:18
PROVIDERS: ATTEND Surgery Plastic and Reconstructive Surgery
DX: K66.0 Peritoneal adhesions (postprocedural) (postinfection) (principal); E66.9 Obesity, unspecified; F43.10 Post-traumatic stress disorder, unspecified; F90.9 Attention-deficit hyperactivity disorder, unspecified type; F60.3 Borderline personality disorder; F41.1 Generalized anxiety disorder; F41.0 Panic disorder [episodic paroxysmal anxiety]; J45.909 Unspecified asthma, uncomplicated; K21.9 Gastro-esophageal reflux disease without esophagitis; M79.7 Fibromyalgia; F31.9 Bipolar disorder, unspecified; G89.18 Other acute postprocedural pain; M19.90 Unspecified osteoarthritis, unspecified site; F17.200 Nicotine dependence, unspecified, uncomplicated; Z68.36 Body mass index [BMI] 36.0-36.9, adult; Z88.1 Allergy status to other antibiotic agents; Z88.2 Allergy status to sulfonamides; Z90.49 Acquired absence of other specified parts of digestive tract; Z91.041 Radiographic dye allergy status; Z94.81 Bone marrow transplant status; Z98.890 Other specified postprocedural states
CPT/HCPCS: 64999; 80053; 85025; 49320; J2250; J0330; J1644; J1100; J2405; J2003; J3010; J0690; J2795; J2704; J1171

== ENCOUNTER 2024-10-09 06:07 | Emergency (ER) | payer OTHER ==
[2024-10-09 06:15] VITALS: TEMP 97.9
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
[2024-10-09 06:54] VITALS: BP 122/79; PULSE 91; RESP 20
== END 2024-10-09 06:57 | disposition home or self-care (01) ==
LOC: EC 06:07
DX: Z02.83 Encounter for blood-alcohol and blood-drug test (principal); F17.290 Nicotine dependence, other tobacco product, uncomplicated; Z88.2 Allergy status to sulfonamides; Z91.041 Radiographic dye allergy status
CPT/HCPCS: 99282

== ENCOUNTER → 2024-10-21 | Outpatient (CLI) | payer OTHER ==
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
== END | disposition home or self-care (01) ==
LOC: RADCTMAIN 17:51
PROVIDERS: ATTEND Emergency Medicine
DX: S01.85XA Open bite of other part of head, initial encounter (principal); S01.21XA Laceration without foreign body of nose, initial encounter; J34.89 Other specified disorders of nose and nasal sinuses
CPT/HCPCS: 70486

== ENCOUNTER → 2024-10-22 | Outpatient (CLI) | payer OTHER ==
--- NOTE | 2024-10-22 11:47 | CT ---
EXAMINATION TYPE: CT brain wo con DATE OF EXAM: 10/22/2024 11:28 AM COMPARISON: 10/21/2024. CLINICAL INDICATION: Female, 33 years old with history of G44.321 CHRONIC POST-TRAUMATIC HEADACHE S01 .85XD, Chronic post traumatic headache TECHNIQUE: Brain: Axial CT images of the brain were obtained with coronal and sagittal reformats created and rev iewed. Contrast used: None. Oral contrast used: None. CT DLP: 1156.4 mGycm, Automated exposure control for dose reduction was used. FINDINGS: Brain: Extra-axial spaces: No abnormal extra-axial fluid collections. Ventricular system: Within normal limits Cerebral parenchyma: No acute intraparenchymal hemorrhage or mass effect. The machado-white junction is well differentiated. Cerebellum: Unremarkable. Mass effect: No evidence of midline shift. Intracranial vasculature: unremarkable Soft tissues: Laceration to the nose bilaterally. Calvarium/osseous structures: No depressed skull fracture. Paranasal sinuses and mastoid air cells: Near complete opacification of the right maxillary sinus. Mi ld mucosal thickening of the left maxillary sinus. Visualized orbits: Orbital contents are intact. IMPRESSION: 1. No acute intracranial process. 2. Near complete opacification of the right maxillary sinus with mild to moderate mucosal thickening of the left maxillary sinus. 3. Bilateral nose lacerations as seen on prior CT. [facility], , 10/22/2024 11:44 AM
== END | disposition home or self-care (01) ==
LOC: RADCTMAIN 10:57
PROVIDERS: ATTEND Emergency Medicine
DX: G44.321 Chronic post-traumatic headache, intractable (principal); S01.85XD Open bite of other part of head, subsequent encounter; J34.89 Other specified disorders of nose and nasal sinuses
CPT/HCPCS: 70450

== ENCOUNTER 2024-11-14 18:34 | Emergency (ER) | payer OTHER ==
[2024-11-14 18:38] VITALS: RESP 18
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
[2024-11-14] MEDS: KETOROLAC 15 MG/ML 1 ML VIAL IM STA (19:30)
[2024-11-14] MEDS: HYDROcodone/APAP 5-325MG 1 EACH TAB PO STA (19:32)
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
[2024-11-14] MEDS: ACET/COD 300 MG/30 MG STARTER PACK TAB BTL PO STA (21:56)
[2024-11-14 22:03] VITALS: BP 125/79; PULSE 84; TEMP 98.1
== END 2024-11-14 22:02 | disposition home or self-care (01) ==
LOC: EC 18:34
DX: M25.561 Pain in right knee (principal); F17.290 Nicotine dependence, other tobacco product, uncomplicated; Z88.2 Allergy status to sulfonamides; Z91.041 Radiographic dye allergy status
CPT/HCPCS: 73562; 99283; 96372; L1830; J1885